=== PATIENT | female | born 1955 | race Caucasian/White ===

== ENCOUNTER → 2016-07-26 | Outpatient (CLI) | payer OTHER, BC ==
[2016-07-26 10:51] LABS: ALKALINE PHOSPHATASE 106 U/L (45-117); ALT/SGPT 35 U/L (12-78); AST/SGOT 19 U/L (15-37); CHOLESTEROL 153 mg/dl (0-200); CHOLESTEROL/HDL RATIO 2.6; HDL CHOLESTEROL 58 mg/dl; LDL CHOLESTEROL CALCULATED 70 mg/dl; TRIGLYCERIDES 126 mg/dl (0-150); VERY LOW DENSITY LIPOPROT CALC 25 mg/dl
== END ==
LOC: C.LABUPBEA 08:51
PROVIDERS: ATTEND Family Medicine
DX: E78.5 Hyperlipidemia, unspecified (principal)

== ENCOUNTER → 2016-09-27 | Outpatient (CLI) | payer OTHER, BC | END | disposition home or self-care (01) | LOC: C.LABUPBEA 09:11 | PROVIDERS: ATTEND Family Medicine | DX: B18.2 Chronic viral hepatitis C (principal) ==

== ENCOUNTER → 2016-11-19 | Outpatient (CLI) | payer OTHER, BC ==
[2016-11-19 08:37] LABS: HEMATOCRIT 40.9 % (37-47); MEAN CELL VOLUME 95.1 fL (80-100); MEAN CORPUSCULAR HEMOGLOBIN 29.8 pg (25-34); MEAN CORPUSCULAR HGB CONC 31.3 g/dl (32-36); PLATELET COUNT 307 K/uL (130-400); WHITE BLOOD COUNT 5.77 K/uL (4.8-10.8)
[2016-11-19 08:45] LABS: ALT/SGPT 32 U/L (12-78); BLOOD UREA NITROGEN 18 mg/dl (7-18); BUN/CREATININE RATIO 18.2 (10-20); CARBON DIOXIDE 26 mmol/L (21-32); CHLORIDE 106 mmol/L (98-107); GLUCOSE 180 mg/dl (70-99); POTASSIUM 4.1 mmol/L (3.5-5.1); SODIUM 142 mmol/L (136-145)
[2016-11-19 08:48] LABS: ESTIMATED AVERAGE GLUCOSE 180 mg/dl; HA1C FLAG Normal (Normal)
[2016-11-19 08:54] LABS: CALCIUM 8.9 mg/dl (8.5-10.1)
[2016-11-19 08:58] LABS: ALB/GLOB RATIO 0.9 (0.9-2); ALKALINE PHOSPHATASE 102 U/L (45-117); AST/SGOT 21 U/L (15-37)
--- NOTE | 2016-12-03 12:54 | CODING QUERY MEDICAL NECESSITY ---
SUPPORTING DIAGNOSIS NEEDED A supporting diagnosis is required for the test/procedure performed on this patient in order for us to be reimbursed by the patient's insurance. Please provide a supporting diagnosis for the following test/procedure listed below next to the test name along with your signature. *If there is no additional diagnosis for this patient that would support the following test/procedure please document that below next to the test/procedure. Test(s)/Procedure(s) that require a supporting diagnosis: * VITAMIN D, 25-HYDROXY DIAGNOSIS: Provider Signature: Date: Thank you Sophie Lynch Dasdak Information Management Once completed, please kindly fax back to [phone] For questions please call [phone]
== END | disposition home or self-care (01) ==
LOC: C.LABUPBEA 08:19
PROVIDERS: ATTEND Family Medicine
DX: E78.5 Hyperlipidemia, unspecified (principal); E11.9 Type 2 diabetes mellitus without complications; E03.9 Hypothyroidism, unspecified; E55.9 Vitamin D deficiency, unspecified

== ENCOUNTER → 2017-01-02 | Outpatient (CLI) | payer OTHER, BC ==
[2017-01-02 14:18] LABS: URINE APPEARANCE CLOUDY (CLEAR); URINE BILIRUBIN NEG (NEG); URINE COLOR YELLOW; URINE EPITHELIAL CELL AUTO >30 /lpf (0-5); URINE NITRITE NEG (NEG); URINE SPECIFIC GRAVITY 1.028 (1.000-1.030); UROBILINOGEN NEG (NEG); ZZUR CULT IF INDIC CLEAN CATCH YES
[2017-01-02 14:25] LABS: MANUAL MICROSCOPIC REQUIRED? NO; REVIEW REQ? NO
== END | disposition home or self-care (01) ==
LOC: C.LABUPBEA 13:39
PROVIDERS: ATTEND Family Medicine
DX: Z01.89 Encounter for other specified special examinations (principal)

== ENCOUNTER → 2017-02-15 | Outpatient (CLI) | payer OTHER, BC ==
[2017-02-15 11:03] LABS: ESTIMATED AVERAGE GLUCOSE 186 mg/dl; HA1C FLAG Normal (Normal)
== END ==
LOC: C.LABUPBEA 09:37
PROVIDERS: ATTEND Family Medicine
DX: E11.9 Type 2 diabetes mellitus without complications (principal)

== ENCOUNTER → 2017-03-20 | Outpatient (CLI) | payer OTHER, BC | LOC: C.LABUPBEA 07:44 | PROVIDERS: ATTEND Nurse Practitioner Family | DX: E55.9 Vitamin D deficiency, unspecified (principal) ==

== ENCOUNTER → 2017-03-21 | Outpatient (CLI) | payer OTHER, BC | LOC: C.LABUPBEA 08:55 | PROVIDERS: ATTEND Nurse Practitioner Family | DX: E55.9 Vitamin D deficiency, unspecified (principal) ==

== ENCOUNTER → 2017-04-05 | Outpatient (CLI) | payer OTHER, BC | LOC: C.LABUPBEA 08:31 | PROVIDERS: ATTEND Nurse Practitioner Family | DX: E03.9 Hypothyroidism, unspecified (principal) ==

== ENCOUNTER → 2017-06-25 | Outpatient (CLI) | payer OTHER, BC ==
[2017-06-25 09:08] LABS: HEMOGLOBIN A1C 7.9 % (4.5-5.6)
== END ==
LOC: C.LABUPBEA 08:35
PROVIDERS: ATTEND Nurse Practitioner Family
DX: E11.9 Type 2 diabetes mellitus without complications (principal)

== ENCOUNTER → 2017-06-28 | Outpatient (CLI) | payer OTHER, BC | LOC: C.LABUPBEA 08:09 | PROVIDERS: ATTEND Nurse Practitioner Family | DX: E03.9 Hypothyroidism, unspecified (principal); E78.5 Hyperlipidemia, unspecified ==

== ENCOUNTER → 2017-07-05 | Outpatient (CLI) | payer OTHER, BC | LOC: C.LABUPBEA 07:57 | PROVIDERS: ATTEND Nurse Practitioner Family | DX: E03.9 Hypothyroidism, unspecified (principal) ==

== ENCOUNTER → 2017-07-22 | Outpatient (CLI) | payer OTHER, BC ==
[2017-07-22 16:45] LABS: INFLUENZA A PCR Neg for Influ A (NEG); INFLUENZA B PCR Neg for Influ B (NEG)
== END | disposition home or self-care (01) ==
LOC: C.LABUPBEA 15:11
PROVIDERS: ATTEND Nurse Practitioner Family
DX: R50.9 Fever, unspecified (principal)

== ENCOUNTER → 2017-09-19 | Outpatient (CLI) | payer OTHER, BC ==
[2017-09-19 09:53] LABS: ALT/SGPT 32 U/L (12-78); AST/SGOT 22 U/L (15-37); BLOOD UREA NITROGEN 15 mg/dl (7-18); CALCIUM 8.7 mg/dl (8.5-10.1); CARBON DIOXIDE 24 mmol/L (21-32); CREATININE 0.91 mg/dl (0.60-1.20); GLUCOSE 99 mg/dl (70-99); POTASSIUM 4.1 mmol/L (3.5-5.1); SODIUM 140 mmol/L (136-145)
[2017-09-19 09:56] LABS: ALKALINE PHOSPHATASE 88 U/L (45-117); TOTAL PROTEIN 6.5 gm/dl (6.4-8.2)
== END ==
LOC: C.LABUPBEA 07:52
PROVIDERS: ATTEND Nurse Practitioner Family
DX: E78.5 Hyperlipidemia, unspecified (principal)

== ENCOUNTER → 2017-09-20 | Outpatient (CLI) | payer OTHER, BC ==
[2017-09-20 09:24] LABS: HEMOGLOBIN A1C 7.5 % (4.5-5.6)
== END ==
LOC: C.LABUPBEA 07:46
PROVIDERS: ATTEND Nurse Practitioner Family
DX: E11.9 Type 2 diabetes mellitus without complications (principal)

== ENCOUNTER → 2017-10-29 | Outpatient (CLI) | payer OTHER, BC | LOC: C.LABUPBEA 09:18 | PROVIDERS: ATTEND Nurse Practitioner Family | DX: E03.9 Hypothyroidism, unspecified (principal); E78.5 Hyperlipidemia, unspecified; E55.9 Vitamin D deficiency, unspecified ==

== ENCOUNTER 2025-01-02 14:12 | Inpatient (IN) ==
--- NOTE | 2025-01-02 14:34 | Emergency Department Note ---
Impression & Plan Fever of unknown origin, Hypomagnesemia, Acute hyponatremia ED Provider Note NAME: JENA AGUIRRE AGE: 69 SEX: F : 1955 ARRIVES VIA: Ambulance INFORMANT: Patient, EMS ED PROVIDER(S): Jax Araujo DO CHIEF COMPLAINT: Altered mental status HPI: The patient is a 69-year-old female who presented to the emergency department for confusion. The patient was recently treated for a urinary tract infection with Bactrim. She is 2 days status post finishing that antibiotic. She presents to the emergency department for evaluation of fever. The patient also has been confused recently. Normally she is able to feed herself and help with her care but this has become more difficult over the last 48 hours. There is no reported trauma. The patient himself offers no complaints. ROS: See above HPI for pertinent positives & negatives. A total of 10 systems reviewed and were otherwise negative. PAST MEDICAL HISTORY: See Below PAST SURGICAL HISTORY: See Below FAMILY HISTORY: See Below SOCIAL HISTORY: See Below HOME MEDICATIONS: See Below ALLERGIES: See Below VITALS: See Below PHYSICAL EXAMINATION: GENERAL: The patient is awake and follows commands. She is slow to answer questions. EYES: The conjunctivae are clear. The pupils are round and reactive. EARS, NOSE, MOUTH AND THROAT: The nose is without any evidence of any deformity. Mucous membranes are dry. NECK: The neck is nontender and supple. RESPIRATORY: Normal respiratory effort is noted there is no evidence of wheezing rhonchi or rales CARDIOVASCULAR: Tachycardic and regular heart sounds were noted to auscultation. There is no evidence of murmur. GASTROINTESTINAL: The abdomen is soft and mildly distended. There is no specific guarding or rigidity. MUSCULOSKELETAL/EXTREMITIES: There is no evidence of gross deformity full range of motion is noted in the hips and shoulders. SKIN: Skin is warm and dry. Pedal edema was noted bilaterally. NEUROLOGIC: Patient is awake and oriented to person only. Strength was symmetric. Speech was soft but clear. MEDICAL DECISION MAKING: The patient is a 69-year-old female who presented to the emergency department for an evaluation of confusion and fever. The patient was found to have a fever in the emergency department. She was treated with IV fluids in the emergency department. On physical exam she appeared to be dehydrated. I discussed the patient's laboratory and radiographic studies with her. At this time no family is come the emergency department to be with her. Given her findings I discussed her condition with the on-call [facility] hospitalist. They have agreed to evaluate the patient in the emergency department for further management and disposition. The patient was not found to have a definite source of infection on her workup. Triage Nursing notes reviewed. Prior medical records reviewed Vital Signs: reviewed and remarkable for fever and tachycardia. Differential diagnosis: Infection, hypoglycemia, electrolyte abnormalities, overdose, toxicologic, cardiac sources, intracerebral event, neurologic, trauma, as well as other pathologies. ER treatment provided: See below Diagnostics interpreted by me: ECG: EKG was obtained in the emergency department. My interpretation is sinus tachycardia at [address] abnormalities were noted. Poor R wave progression was noted. QTc was 428 ms. Cardiac Monitoring: An order was placed for continuous cardiac monitoring. The monitor shows a rate of 91 bpm with sinus rhythm. Laboratory studies: As stated above and show below. Imaging studies: See below. Radiographic imaging was reviewed by myself Consultation(s): I discussed this case with Dr. Mcduffie who is on-call for the [facility]. Past Med/Surg History Problem List (Updated 01/02/25 @ 16:07 by Jax Araujo DO) Acute hyponatremia (Acute) Hypomagnesemia (Acute) Fever of unknown origin (Acute) Colon cancer screening Encounter for pre-operative examination Medical History History of COVID-19 06/17/20 - [address] 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 Beliefs That Will Affect Care: None Current Living Situation: [facility] Current Living Situation Comment: [facility] Feels Safe at Home: Yes Allergies Allergies Allergy/AdvReac Type Severity Reaction Status Date / Time No Known Allergies Allergy Verified 09/01/20 09:29 Home Meds Home Medications Medication Instructions Recorded Confirmed atorvastatin 20 mg tablet (Lipitor) 20 mg PO HS 07/28/20 01/02/25 donepezil 5 mg tablet (Aricept) 5 mg PO HS 07/28/20 01/02/25 fesoterodine 4 mg tablet,extended 4 mg PO DAILY 07/28/20 01/02/25 release 24 hr (Toviaz) levothyroxine 50 mcg tablet 50 mcg PO QAM 07/28/20 01/02/25 (Synthroid) polyethylene glycol 3350 17 gram 17 g PO DAILY 07/28/20 01/02/25 oral powder packet (Miralax) sitagliptin phosphate 50 1 tab PO BID 07/28/20 01/02/25 mg-metformin 1,000 mg tablet (Janumet) acetaminophen 325 mg tablet 650 mg PO Q6 PRN PAIN LEVEL 1-10 01/02/25 01/02/25 acetaminophen 325 mg tablet 650 mg PO Q6 PRN TEMP > 101 01/02/25 01/02/25 carboxymethylcellulose sodium 0.5 1 drp OPB BID 01/02/25 01/02/25 % eye drops (Refresh Tears) chlorhexidine gluconate 0.12 % 15 ml buccal BID 01/02/25 01/02/25 mouthwash (Peridex) cholecalciferol (vitamin D3) 25 25 mcg PO DAILY 01/02/25 01/02/25 mcg (1,000 unit) tablet (Vitamin D3) divalproex 125 mg capsule,delayed 125 mg PO TID 01/02/25 01/02/25 release sprinkle lidocaine 5 % topical patch 1 patch topical DAILY 01/02/25 01/02/25 memantine 10 mg tablet 10 mg PO BID 01/02/25 01/02/25 quetiapine 100 mg tablet 150 mg PO HS 01/02/25 01/02/25 sertraline 100 mg tablet 100 mg PO QAM 01/02/25 01/02/25 Results & Data (ED) Vital Signs Vital Signs - 24 hr 01/02/25 14:00 01/02/25 14:23 01/02/25 14:36 Temperature 38.3 C H Temperature Source Rectal Pulse Rate 111 H 109 H Respiratory Rate 18 Respiratory Effort / Characteristics Non-Labored Spontaneous Respiratory Depth Normal Respiratory Pattern Regular Blood Pressure 114/74 Blood Pressure Mean 87 Pulse Oximetry 93 93 Oxygen Delivery Method Room Air Room Air Oxygen Flow Rate Sepsis Recent Fever Within 48 Hours Yes Sepsis New/Unexplained Change in Mental Status Yes Sepsis Action Taken by Nursing Physician Notified 01/02/25 14:45 01/02/25 15:11 01/02/25 15:15 Temperature Temperature Source Pulse Rate 103 H 99 H Respiratory Rate 19 19 Respiratory Effort / Characteristics Respiratory Depth Respiratory Pattern Blood Pressure 116/58 L Blood Pressure Mean 77 Pulse Oximetry 91 96 95 Oxygen Delivery Method Room Air Oxygen Flow Rate 0 Sepsis Recent Fever Within 48 Hours Sepsis New/Unexplained Change in Mental Status Sepsis Action Taken by Nursing 01/02/25 16:03 Temperature Temperature Source Pulse Rate 91 H Respiratory Rate 19 Respiratory Effort / Characteristics Respiratory Depth Respiratory Pattern Blood Pressure 136/86 Blood Pressure Mean 102 Pulse Oximetry 96 Oxygen Delivery Method Oxygen Flow Rate Sepsis Recent Fever Within 48 Hours Sepsis New/Unexplained Change in Mental Status Sepsis Action Taken by [facility] Medications Current Medication List: was personally reviewed by me Laboratory Data Attestation: I reviewed the patient's lab results. 01/02/25 14:20 01/02/25 14:20 Lab Results 01/02/25 01/02/25 01/02/25 Range/Units 14:20 14:21 14:26 WBC 5.78 (4.8-10.8) K/ul RBC 3.42 L (4.20-5.40) M/uL Hgb 10.6 L (12.0-16.0) g/dl Hct 31.7 L (37.0-47.0) % MCV 92.7 (80.0-100.0) fL MCH 31.0 (25.0-34.0) pg MCHC 33.4 (32.0-36.0) g/dL RDW Std Deviation 46.0 (36.4-46.3) fL RDW Coeff of Sukh 13.6 (11.5-14.5) % Plt Count 146 (130-400) K/uL MPV 10.1 (9.4-12.4) fL Immature Gran % (Auto) 2.2 % Neut % (Auto) 88.6 % Lymph % (Auto) 6.4 % [place] % (Auto) 1.6 % Eos % (Auto) 0.9 % Baso % (Auto) 0.3 % Neut # (Auto) 5.12 (1.40-6.50) K/uL Lymph # (Auto) 0.37 L (1.20-3.40) K/uL [place] # (Auto) 0.09 L (0.11-0.59) K/uL Eos # (Auto) 0.05 (0.00-0.50) K/uL Baso # (Auto) 0.02 (0.00-0.20) K/uL Immature Gran # (Auto) 0.13 (0.01-0.20) K/uL PT 12.2 H (9.0-12.0) Seconds INR 1.1 (0.9-1.1) APTT 35 H (21-31) Seconds PTT Ratio 1.3 VBG pH (7.36-7.41) VBG pCO2 (38-50) mmHg VBG pO2 mmHg VBG HCO3 mmol/L VBG O2 Saturation % VBG Base Excess mEq/L Sodium 130 L (136-145) mmol/L Potassium 4.6 (3.5-5.1) mmol/L Chloride 98 (98-107) mmol/L Carbon Dioxide 24 (21-32) mmol/L Anion Gap 8 (3-11) BUN 21 (6-23) mg/dl Creatinine 0.88 (0.6-1.2) mg/dl Est Cr Clr Drug Dosing Not Reportable eGFR 71.54 BUN/Creatinine Ratio 23.9 H (10-20) Glucose 232 H (70-99(Fasting)) mg/dl POC Glucose 255 H (70-99) mg/dl Lactate 1.4 (0.4-2.0) mmol/L Calcium 8.2 L (8.6-10.3) mg/dl Magnesium 1.4 L (1.7-2.4) mg/dl Total Bilirubin 0.3 (0.2-1.0) mg/dl Direct Bilirubin 0.1 (0-0.2) mg/dl AST 51 H (13-39) U/L ALT 28 (7-52) U/L Alkaline Phosphatase 57 (34-104) U/L Troponin I High Sens 12.4 (0-14) pg/ml Total Protein 6.1 (6.0-8.3) gm/dl Albumin 2.9 L (3.4-5.0) gm/dl Procalcitonin 0.67 H (0-0.5) ng/ml Urine Color Urine Appearance (Clear) Urine pH (4.5-7.5) Ur Specific [place] (1.000-1.030) Urine Protein (Negative) Urine Glucose (UA) (Negative) Urine Ketones (Negative) Urine Blood (Negative) Urine Nitrite (Negative) Urine Bilirubin (Negative) Urine Urobilinogen (Negative) Ur Leukocyte Esterase (Negative) Urine WBC (Auto) (0-5) /hpf Urine RBC (Auto) (0-2) /hpf U Hyaline Cast (Auto) (0-2) /lpf U Epithel Cells (Auto) (0-2) /hpf Urine Bacteria (Auto) (None Seen) Urine Comment SARS-CoV-2 (PCR) NEGATIVE (Negative) Influenza Type A (PCR) Negative (Neg) Influenza Type B (PCR) Negative (Neg) RSV (RT-PCR) Negative (Neg) 01/02/25 01/02/25 Range/Units 14:43 15:13 WBC (4.8-10.8) K/ul RBC (4.20-5.40) M/uL Hgb (12.0-16.0) g/dl Hct (37.0-47.0) % MCV (80.0-100.0) fL MCH (25.0-34.0) pg MCHC (32.0-36.0) g/dL RDW Std Deviation (36.4-46.3) fL RDW Coeff of Sukh (11.5-14.5) % Plt Count (130-400) K/uL MPV (9.4-12.4) fL Immature Gran % (Auto) % Neut % (Auto) % Lymph % (Auto) % [place] % (Auto) % Eos % (Auto) % Baso % (Auto) % Neut # (Auto) (1.40-6.50) K/uL Lymph # (Auto) (1.20-3.40) K/uL [place] # (Auto) (0.11-0.59) K/uL Eos # (Auto) (0.00-0.50) K/uL Baso # (Auto) (0.00-0.20) K/uL Immature Gran # (Auto) (0.01-0.20) K/uL PT (9.0-12.0) Seconds INR (0.9-1.1) APTT (21-31) Seconds PTT Ratio VBG pH 7.49 H (7.36-7.41) VBG pCO2 32 L (38-50) mmHg VBG pO2 69 mmHg VBG HCO3 24 mmol/L VBG O2 Saturation 95.9 % VBG Base Excess 1.7 mEq/L Sodium (136-145) mmol/L Potassium (3.5-5.1) mmol/L Chloride (98-107) mmol/L Carbon Dioxide (21-32) mmol/L Anion Gap (3-11) BUN (6-23) mg/dl Creatinine (0.6-1.2) mg/dl Est Cr Clr Drug Dosing eGFR BUN/Creatinine Ratio (10-20) Glucose (70-99(Fasting)) mg/dl POC Glucose (70-99) mg/dl Lactate (0.4-2.0) mmol/L Calcium (8.6-10.3) mg/dl Magnesium (1.7-2.4) mg/dl Total Bilirubin (0.2-1.0) mg/dl Direct Bilirubin (0-0.2) mg/dl AST (13-39) U/L ALT (7-52) U/L Alkaline Phosphatase (34-104) U/L Troponin I High Sens (0-14) pg/ml Total Protein (6.0-8.3) gm/dl Albumin (3.4-5.0) gm/dl Procalcitonin (0-0.5) ng/ml Urine Color Yellow Urine Appearance Clear (Clear) Urine pH 6.0 (4.5-7.5) Ur Specific [place] 1.021 (1.000-1.030) Urine Protein 2+ H (Negative) Urine Glucose (UA) 1+ H (Negative) Urine Ketones Trace H (Negative) Urine Blood Negative (Negative) Urine Nitrite Negative (Negative) Urine Bilirubin Negative (Negative) Urine Urobilinogen Negative (Negative) Ur Leukocyte Esterase Negative (Negative) Urine WBC (Auto) 0-5 (0-5) /hpf Urine RBC (Auto) 0-2 (0-2) /hpf U Hyaline Cast (Auto) 0-2 (0-2) /lpf U Epithel Cells (Auto) 3-5 H (0-2) /hpf Urine Bacteria (Auto) None Seen (None Seen) Urine Comment SARS-CoV-2 (PCR) (Negative) Influenza Type A (PCR) (Neg) Influenza Type B (PCR) (Neg) RSV (RT-PCR) (Neg) Administered Medications Piperacillin Sod/Tazobactam Sod (Zosyn) 4.5 gm in 100 mls @ 200 mls/hr IV NOW ONE; Protocol Stop: 01/02/25 16:19 Last Admin: 01/02/25 16:05 Dose: 200 mls/hr Documented By: AMBIKA Magnesium Sulfate/Dextrose (Magnesium Sulfate / D5w) 1 gm in 100 mls @ 100 mls/hr IV NOW STA Stop: 01/02/25 16:49 Last Admin: 01/02/25 16:02 Dose: 100 mls/hr Documented By: AMBIKA Discontinued Medications Sodium Chloride (Nss) 1,000 mls @ 999 mls/hr IV .Q1H1M ONE Stop: 01/02/25 15:23 Last Infusion: 01/02/25 16:09 Dose: Infused Documented By: Admin: 01/02/25 14:35 Dose: 999 mls/hr Documented By: MASON Sodium Chloride (Nss) 1,000 mls @ 999 mls/hr IV .Q1H1M ONE Stop: 01/02/25 15:26 Last Admin: 01/02/25 16:03 Dose: 999 mls/hr Documented By: ANT Acetaminophen (Ofirmev) 1,000 mg in 100 mls @ 400 mls/hr IV NOW STA Stop: 01/02/25 16:04 Last Infusion: 01/02/25 16:09 Dose: Infused Documented By: Admin: 01/02/25 16:02 Dose: 400 mls/hr Documented By: AMBIKA Imaging Data Attestation: I personally reviewed and interpreted this imaging study as follows: My Impression: 1 view chest x-ray was obtained in the emergency department. My interpretation is no free air or definite infiltrate, final report below. Radiologist's Impression: Chest X-Ray 01/02/25 14:23 Chest radiograph, one view History: Sepsis Comparison: None Findings: Single AP view of the chest performed. No focal consolidation or pleural effusion. No pneumothorax. The cardiomediastinal silhouette is within normal limits. Normal pulmonary vascularity. No evidence for lymphadenopathy. No visualized bony or soft tissue abnormality. Impression: Normal chest radiograph Electronically signed by Jeremy Castro 01-02-2025 3:[address] 01/02/25 14:23 CT head without contrast History: AMS Comparison: None Technique: Using multidetector thin collimation helical acquisition technique, axial, coronal and sagittal CT images from the skull base to the vertex were obtained without intravenous contrast. Dose reduction techniques were achieved by using automatic exposure control and/or adjustment of mA and/or kV according to patient size and/or use of iterative reconstruction technique. Findings: No intracranial hemorrhage, mass-effect, or midline shift. The ventricles are proportionate to the cerebral sulci. The niño to white matter differentiation of the cerebral hemispheres is preserved. The basal cisterns are patent. There is moderate cerebral atrophy. Moderate, patchy low-attenuation changes in the white matter, most suggestive of sequelae of chronic small vessel ischemic disease. The visualized paranasal sinuses are clear. Mastoid air cells are clear. Impression: No acute intracranial pathology. Electronically signed by Jeremy Castro 01-02-2025 3:59 PM Abdomen/Pelvis CT 01/02/25 14:34 EXAMINATION: CT of the abdomen and pelvis performed without contrast TECHNIQUE: Helical CT images from the lung bases through the symphysis pubis were obtained without contrast. Coronal and sagittal reformatted images were generated at a workstation for further assessment. Dose reduction techniques were achieved by using automatic exposure control and/or adjustment of mA and/or kV according to patient size and/or use of iterative reconstruction technique. COMPARISON: None HISTORY: Abdominal pain FINDINGS: Lower chest: No consolidation. No pleural effusion or pneumothorax. Liver: No suspicious liver lesions. Gallbladder: No gallstones. No evidence of acute cholecystitis. Spleen: Normal size. Pancreas: No suspicious pancreatic lesions. The pancreatic duct is not dilated. Adrenal glands: No adrenal nodules. Kidneys: No hydronephrosis or obstructing renal stones. Bladder / Pelvic organs: Unremarkable. Bowel: No bowel obstruction. No abnormal bowel wall thickening. The appendix is unremarkable. There is a large colonic stool burden mixed with fat density throughout the large bowel, and especially in the rectum. Lymph nodes: No retroperitoneal, mesenteric, or pelvic lymphadenopathy. Peritoneum / Retroperitoneum: No free fluid or air within the abdomen. Vessels: No infrarenal aortic aneurysm. Bones and soft tissues: No suspicious lesion in the bones. IMPRESSION: There is a large colonic stool burden mixed with fat density suggesting steatorrhea. No other acute process Electronically signed by Jeremy Castro 01-02-2025 4:01 PM Discharge Plan Visit Data Chief Complaint: Confusion Stated Complaint: AMS, LETHARGIC ,WEAKNESS ED Provider: Jax Araujo Discharge Problem: Fever of unknown origin, Hypomagnesemia, Acute hyponatremia Patient Disposition: Being Evaluated by Hospitalist Condition: Fair Forms Stand Alone Forms: My [facility] Prescriptions Prescriptions: No Action atorvastatin [Lipitor] 20 mg Tablet 20 mg PO HS donepezil [Aricept] 5 mg Tablet 5 mg PO HS polyethylene glycol 3350 [Miralax] 17 gram Powder In Packet 17 g PO DAILY Rx Instructions: HOLD FOR LOOSE STOOLS levothyroxine [Synthroid] 50 mcg Tablet 50 mcg PO QAM Rx Instructions: GIVE AT LEAST 1/2 HOUR BEFORE EATING Janumet 50-1,000 mg Tablet 1 tab PO BID fesoterodine [Toviaz] 4 mg Tablet Extended Release 24 Hr 4 mg PO DAILY acetaminophen 325 mg Tablet 650 mg PO Q6 MDD 3 G PRN (Reason: TEMP > 101) quetiapine 100 mg tablet 150 mg PO HS Rx Instructions: 1.5 TABLET DOSE sertraline 100 mg tablet 100 mg PO QAM cholecalciferol (vitamin D3) [Vitamin D3] 25 mcg (1,000 unit) Tablet 25 mcg PO DAILY memantine 10 mg tablet 10 mg PO BID acetaminophen 325 mg Tablet 650 mg PO Q6 MDD 3G PRN (Reason: PAIN LEVEL 1-10) divalproex 125 mg capsule, delayed rel sprinkle 125 mg PO TID carboxymethylcellulose sodium [Refresh Tears] 0.5 % Drops 1 drp OPB BID lidocaine 5 % adhesive patch,medicated 1 patch topical DAILY Rx Instructions: APPLY TO LOWER BACK AND REMOVE PER SCHEDULE chlorhexidine gluconate [Peridex] 0.12 % Mouthwash 15 ml BUCCAL BID Referrals Referrals: [facility] [Primary Care Provider] -
[2025-01-02] MEDS: SODIUM CHLORIDE 0.9% 1,000 ML IV ONE ×2 (14:35→16:03)
[2025-01-02 14:47] LABS: Hematocrit (blood only) 31.7 % (37.0-47.0); Hemoglobin 10.6 g/dl (12.0-16.0); Mean Corpuscular Hemoglobin 31.0 pg (25.0-34.0); Mean Corpuscular Volume 92.7 fL (80.0-100.0); Platelet Count 146 K/uL (130-400); RDW Standard Deviation 46.0 fL (36.4-46.3); Red Blood Count 3.42 M/uL (4.20-5.40); White Blood Count 5.78 K/ul (4.8-10.8)
[2025-01-02 14:51] LABS: Base Excess VBG 1.7 mEq/L; HCO3 VBG 24 mmol/L; Oxygen Saturation VBG 95.9 %; PCO2 VBG 32 mmHg (38-50); PO2 VBG 69 mmHg; pH VBG 7.49 (7.36-7.41)
[2025-01-02 14:55] LABS: INR 1.1 (0.9-1.1); Partial Thromboplastin Time 35 Seconds (21-31); Prothrombin Time 12.2 Seconds (9.0-12.0)
[2025-01-02 15:05] LABS: Alanine Aminotransferase 28 U/L (7-52); Alkaline Phosphatase 57 U/L (34-104); Anion Gap 8 (3-11); Bilirubin,Total 0.3 mg/dl (0.2-1.0); Blood Urea Nitrogen 21 mg/dl (6-23); Calcium 8.2 mg/dl (8.6-10.3); Carbon Dioxide 24 mmol/L (21-32); Chloride 98 mmol/L (98-107); Glucose 232 mg/dl (70-99(Fasting)); Magnesium 1.4 mg/dl (1.7-2.4); Potassium 4.6 mmol/L (3.5-5.1); Sodium 130 mmol/L (136-145); Total Protein 6.1 gm/dl (6.0-8.3)
[2025-01-02 15:21] LABS: Influenza A virus by PCR Negative (Neg); Influenza B virus by PCR Negative (Neg); SARS CoV2 RNA(COVID-19) Ceph NEGATIVE (Negative)
[2025-01-02 15:45] LABS: Immature Granulocytes # (auto) 0.13 K/uL (0.01-0.20); Immature Granulocytes % (auto) 2.2 %
[2025-01-02 15:46] LABS: Appearance Urine Clear (Clear); Bacteria Urine Automated None Seen (None Seen); Cast Urine Automated 0-2 /lpf (0-2); Glucose Urine UA 1+ (Negative); RBC Urine Automated 0-2 /hpf (0-2); WBC Urine Automated 0-5 /hpf (0-5)
--- NOTE | 2025-01-02 15:51 | XRay Report ---
Chest radiograph, one view History: Sepsis Comparison: None Findings: Single AP view of the chest performed. No focal consolidation or pleural effusion. No pneumothorax. The cardiomediastinal silhouette is within normal limits. Normal pulmonary vascularity. No evidence for lymphadenopathy. No visualized bony or soft tissue abnormality. Impression: Normal chest radiograph Electronically signed by Jeremy Castro 01-02-2025 3:51 PM
--- NOTE | 2025-01-02 15:59 | CT Scan Report ---
CT head without contrast History: AMS Comparison: None Technique: Using multidetector thin collimation helical acquisition technique, axial, coronal and sagittal CT images from the skull base to the vertex were obtained without intravenous contrast. Dose reduction techniques were achieved by using automatic exposure control and/or adjustment of mA and/or kV according to patient size and/or use of iterative reconstruction technique. Findings: No intracranial hemorrhage, mass-effect, or midline shift. The ventricles are proportionate to the cerebral sulci. The niño to white matter differentiation of the cerebral hemispheres is preserved. The basal cisterns are patent. There is moderate cerebral atrophy. Moderate, patchy low-attenuation changes in the white matter, most suggestive of sequelae of chronic small vessel ischemic disease. The visualized paranasal sinuses are clear. Mastoid air cells are clear. Impression: No acute intracranial pathology. Electronically signed by Jeremy Castro 01-02-2025 3:59 PM
[2025-01-02] MEDS: MAGNESIUM SULFATE / D5W 1 GM/100 ML BAG IV STA (16:02)
[2025-01-02] MEDS: ACETAMINOPHEN 1,000 MG/100 ML VIAL IV STA (16:02)
--- NOTE | 2025-01-02 16:02 | CT Scan Report ---
EXAMINATION: CT of the abdomen and pelvis performed without contrast TECHNIQUE: Helical CT images from the lung bases through the symphysis pubis were obtained without contrast. Coronal and sagittal reformatted images were generated at a workstation for further assessment. Dose reduction techniques were achieved by using automatic exposure control and/or adjustment of mA and/or kV according to patient size and/or use of iterative reconstruction technique. COMPARISON: None HISTORY: Abdominal pain FINDINGS: Lower chest: No consolidation. No pleural effusion or pneumothorax. Liver: No suspicious liver lesions. Gallbladder: No gallstones. No evidence of acute cholecystitis. Spleen: Normal size. Pancreas: No suspicious pancreatic lesions. The pancreatic duct is not dilated. Adrenal glands: No adrenal nodules. Kidneys: No hydronephrosis or obstructing renal stones. Bladder / Pelvic organs: Unremarkable. Bowel: No bowel obstruction. No abnormal bowel wall thickening. The appendix is unremarkable. There is a large colonic stool burden mixed with fat density throughout the large bowel, and especially in the rectum. Lymph nodes: No retroperitoneal, mesenteric, or pelvic lymphadenopathy. Peritoneum / Retroperitoneum: No free fluid or air within the abdomen. Vessels: No infrarenal aortic aneurysm. Bones and soft tissues: No suspicious lesion in the bones. IMPRESSION: There is a large colonic stool burden mixed with fat density suggesting steatorrhea. No other acute process Electronically signed by Jeremy Castro 01-02-2025 4:01 PM
[2025-01-02] MEDS: PIPERACILLIN/TAZOBACTAM 4.5 GM/100 ML BAG IV ONE (16:05)
--- NOTE | 2025-01-02 16:16 | History & Physical Report ---
Date of Service January 02, 2025 Assessment & Plan (1) Acute hyponatremia: Plan Ms. Li is a 69 yo woman with history of schizoaffective d/o, DMTII, dementia, HLD, dry eyes, overactive bladder, CKDII, constipation is admitted for acute encephalopathy and questionable sepsis iso fever and tachycardia. There is no clear source of infection, but given patient's inability to participate in exam will continue abx until infectious work up results. High suspicion for dehydration and severe constipation contributing to acute presentation, however, suspect ongoing progressive process given report that patient has had ongoing decline. Plan for aggressive bowel regimen at this time. Encourage po at this time as labs indicate mixed picture for hyponatremia, would suspect poor po intake over course of last few days, but also labs suggest mild siadh likely. #possible sepsis with fever/tachycardia, however, unclear source of infection #severe constipation #Acute metabolic encephalopathy TMAX 38.3, recent ammonia level 73 12/24 with reduction of depakote level on 12/26 (recent level 35L) s/p 2L NS given elevated bun/cr ratio, acute hyponatremia, tachycardia, fever and severe constipation could be dehydrated completed recent bactrim course, UA noncontributory no clear source of infection or localizing symptoms, RSV/flu/covid negative, no WBC -follow infectious work up: blood cx pending -continue empiric zosyn, discontinue if negative -Delirium precautions -start laculose PO x 6 for constipation and enema -continue mirlax daily and add senokot -order b12, folate, ammonia level #acute hyponatremia NA 130, normal serum osmo at 280 (iso hyperglycemia, corrected to 132), urine osmos and urine sodium suggest possible slight SIADH, perhaps iso of illness/severe constipation will hold on additional fluids and recheck BMP at 1830 goal 138-140 if downtrending given fluid bolus, would place FR 1.5L and trend bmp q4, consider nephrology #Mild elevation AST AST 51, ALT 28 hold statin possibly iso illness/dehydration Trend cmp, if uptrending get US however, no cholecystitis or liver process noted on imaging #OAB hold fesoterodine iso confusion #DMTII hold home janumet update A1C sliding scale while admitted #CKDII CTM #HLD continue statin #Schizoaffective d/o continue valproic acid continue quetiapine continue sertraline #Dementia continue namenda and aricept DVT ppx Lovenox Admit med/tele attempted to call brother Michael Li with no success, Admission and Anticipated Discharge Date Admission Date: Time spent evaluating patient, direct bedside care, chart review, placing orders, interpretation of diagnostic studies, discussion with consultants, patient, and family members, as well as other required patient management activities is 75 minutes. History of Present Illness Chief Complaint: confusion Primary Care Provider: [facility] Ms. Li is a 69 yo woman with history of schizoaffective d/o, DMTII, dementia, HLD, dry eyes, overactive bladder, CKDII, constipation presented to [facility] ED due to confusion. Patient can state name, but is poor historian--ultimately stating "yes" to every question and closing eyes when question requires more thoughtful response. Patient does not recall last bowel movement. Patient reports everything hurts on her. She follows simple commands and is awake and alert. Patient does endorse her abdomen feels full. She denies chest pain. She denies any nausea or vomiting. Patient unable to answer further questions. Call to [facility] was made for more history. Per nursing (Dari), she has been on the case load for 2 years; however, it is reported that she has "gone down hill" over the last two months, noting progressive weakness from being entirely independent, requiring assistance with eating, and near full support. She was noted to just "look worse" prompting her to be sent to the ED. Available nurse was unable to explain what was "worse" from baseline. In the ED, vitals were notable for BP of 130-140s HR of 80-110s, and O2 sat of low 90s on room air Imaging revealed large colonic stool burden, CT head with chronic ischemic small vessel disease, chest xray without consolidation EKG reviewed with QTc 428 and tachycardia (no resolved) ED interventions: zosyn, tylenol, 2LNS labs with stable chronic anemia, hyponatremia to 130, AST 51, TSH 5.702, FT4 pending at this time, procal 0.67 Patient to be admitted to med tele for further evaluation and management of acute encephalopathy Allergies Allergy/AdvReac Type Severity Reaction Status Date / Time No Known Allergies Allergy Verified 09/01/20 09:29 Home Medications Medication Instructions Recorded Confirmed Type atorvastatin 20 mg tablet (Lipitor) 20 mg PO HS 07/28/20 01/02/25 History donepezil 5 mg tablet (Aricept) 5 mg PO HS 07/28/20 01/02/25 History fesoterodine 4 mg tablet,extended 4 mg PO DAILY 07/28/20 01/02/25 History release 24 hr (Toviaz) levothyroxine 50 mcg tablet 50 mcg PO QAM 07/28/20 01/02/25 History (Synthroid) polyethylene glycol 3350 17 gram 17 g PO DAILY 07/28/20 01/02/25 History oral powder packet (Miralax) sitagliptin phosphate 50 1 tab PO BID 07/28/20 01/02/25 History mg-metformin 1,000 mg tablet (Janumet) acetaminophen 325 mg tablet 650 mg PO Q6 PRN Fever Or Pain 01/02/25 01/02/25 History carboxymethylcellulose sodium 0.5 1 drp OPB BID 01/02/25 01/02/25 History % eye drops (Refresh Tears) chlorhexidine gluconate 0.12 % 15 ml buccal BID 01/02/25 01/02/25 History mouthwash (Peridex) cholecalciferol (vitamin D3) 25 25 mcg PO DAILY 01/02/25 01/02/25 History mcg (1,000 unit) tablet (Vitamin D3) divalproex 125 mg capsule,delayed 125 mg PO TID 01/02/25 01/02/25 History release sprinkle lidocaine 5 % topical patch 1 patch topical DAILY 01/02/25 01/02/25 History memantine 10 mg tablet 10 mg PO BID 01/02/25 01/02/25 History quetiapine 100 mg tablet 150 mg PO HS 01/02/25 01/02/25 History sertraline 100 mg tablet 100 mg PO QAM 01/02/25 01/02/25 History Past Med/Surg History Problem List (Updated 01/02/25 @ 16:07 by Jax Araujo DO) Acute hyponatremia (Acute) Hypomagnesemia (Acute) Fever of unknown origin (Acute) Colon cancer screening Encounter for pre-operative examination Medical History History of COVID-19 06/17/20 - per [facility] records Schizo affective schizophrenia Tinea unguium Vitamin D deficiency Hyperlipidemia Hypothyroid Intellectual disability Depression Type 2 diabetes mellitus Dementia Social History Smoking Status: Unknown if ever smoked Second Hand Exposure: No; Do You Dip or Chew Tobacco: No; Hx Alcohol Use: No Hx Substance Use: No Preferred Language: Australian Communication Ability: Impaired Java Solutions Architect Required: No Beliefs That Will Affect Care: None Current [facility] Sit[facility] Feels Safe at Home: Yes Review of Systems Review of Systems: Unobtainable due to cognitive status Physical Exam Physical Exam: GENERAL APPEARANCE: AxOx1 (self, was able to say hospital, but doesnt know where she lives or year, or state), closes eyes with more open ended questions, no acute distress. HEENT: NC, AT. MMM. EOMI, clear conjunctiva, oropharynx clear. NECK: Supple without lymphadenopathy. No stiffness or restricted ROM. HEART: Normal rate and regular rhythm, normal S1/S1, no m/r/g LUNGS: CTAB, moving air well. No crackles or wheezes are heard. ABDOMEN: mildly distended abdomen, BS+, mild grimacing when examining abdomen EXTREMITIES: Without cyanosis, clubbing or edema. NEUROLOGICAL: Grossly nonfocal. Alert and oriented, moving all 4 extremities. CN not formally tested but appear grossly intact. Skin: Warm and dry without any rash. Results & Data Results & Data Vital Signs (Past 12 Hours) Vital Signs Temp Pulse Resp BP Pulse Ox O2 Del Method O2 Flow Rate 01/02/25 16:03 91 H 19 136/86 96 01/02/25 15:15 99 H 19 95 01/02/25 15:11 96 Room Air 0 01/02/25 14:45 103 H 19 116/58 L 91 01/02/25 14:36 109 H 01/02/25 14:23 93 Room Air 01/02/25 14:00 38.3 C H 111 H 18 114/74 93 Room Air Laboratory Results Short CBC 01/02/25 Range/Units 14:20 WBC 5.78 (4.8-10.8) K/ul Hgb 10.6 L (12.0-16.0) g/dl Hct 31.7 L (37.0-47.0) % Plt Count 146 (130-400) K/uL BMP 01/02/25 14:20 Sodium 130 L Potassium 4.6 Chloride 98 Carbon Dioxide 24 BUN 21 Creatinine 0.88 Glucose 232 H Calcium 8.2 L Liver Function 01/02/25 Range/Units 14:20 Total Bilirubin 0.3 (0.2-1.0) mg/dl Direct Bilirubin 0.1 (0-0.2) mg/dl AST 51 H (13-39) U/L ALT 28 (7-52) U/L Alkaline Phosphatase 57 (34-104) U/L Albumin 2.9 L (3.4-5.0) gm/dl Urine 01/02/25 Range/Units 15:13 Urine Color Yellow Urine Appearance Clear (Clear) Urine pH 6.0 (4.5-7.5) Ur Specific [place] 1.021 (1.000-1.030) Urine Protein 2+ H (Negative) Urine Glucose (UA) 1+ H (Negative) Medications Administered Home Medications Medication Instructions Recorded Confirmed Last Taken atorvastatin 20 mg tablet (Lipitor) 20 mg PO HS 07/28/20 01/02/25 01/01/25 donepezil 5 mg tablet (Aricept) 5 mg PO HS 07/28/20 01/02/25 01/01/25 fesoterodine 4 mg tablet,extended 4 mg PO DAILY 07/28/20 01/02/25 01/02/25 release 24 hr (Toviaz) levothyroxine 50 mcg tablet 50 mcg PO QAM 07/28/20 01/02/25 01/02/25 (Synthroid) polyethylene glycol 3350 17 gram 17 g PO DAILY 07/28/20 01/02/25 01/02/25 oral powder packet (Miralax) sitagliptin phosphate 50 1 tab PO BID 07/28/20 01/02/25 01/02/25 mg-metformin 1,000 mg tablet (Janumet) acetaminophen 325 mg tablet 650 mg PO Q6 PRN Fever Or Pain 01/02/25 01/02/25 01/02/25 carboxymethylcellulose sodium 0.5 1 drp OPB BID 01/02/25 01/02/25 01/02/25 % eye drops (Refresh Tears) chlorhexidine gluconate 0.12 % 15 ml buccal BID 01/02/25 01/02/25 01/02/25 mouthwash (Peridex) cholecalciferol (vitamin D3) 25 25 mcg PO DAILY 01/02/25 01/02/25 01/02/25 mcg (1,000 unit) tablet (Vitamin D3) divalproex 125 mg capsule,delayed 125 mg PO TID 01/02/25 01/02/25 01/02/25 release sprinkle lidocaine 5 % topical patch 1 patch topical DAILY 01/02/25 01/02/25 01/02/25 memantine 10 mg tablet 10 mg PO BID 01/02/25 01/02/25 01/02/25 quetiapine 100 mg tablet 150 mg PO HS 01/02/25 01/02/25 01/01/25 sertraline 100 mg tablet 100 mg PO QAM 01/02/25 01/02/25 01/02/25
[2025-01-02] MEDS: LACTULOSE SYRUP 20 GM/30 ML UDC PO ONE (17:04)
[2025-01-02 17:30] LABS: Thyroid Stimulating Hormone 5.702 uIu/ml (0.300-4.500)
[2025-01-02 17:44] LABS: Hemoglobin A1C 8.5 % (4.5-5.6)
[2025-01-02 17:59] LABS: Folate (Folic Acid),Ser orPlas 10.86 ng/ml (>5.38)
[2025-01-02 18:00] LABS: Vitamin B12 258.0 pg/ml (180-914)
[2025-01-02] MEDS ORDERED: GLUCAGON FOR INJ 1 MG VIAL SQ PRN (18:53)
[2025-01-02] MEDS ORDERED: DEXTROSE 50% 50 ML SYRINGE IV PRN (18:53)
[2025-01-02] MEDS ORDERED: CARBOHYDRATES FOR HYPOGLYCEMIA PO PRN (18:53)
[2025-01-02] MEDS ORDERED: GLUCOSE 10 TAB/TUBE PO PRN (18:53)
[2025-01-02] MEDS ORDERED: GLUCOSE 40% GEL 15 GM TUBE PO PRN (18:53)
[2025-01-02] MEDS: SODIUM CHLORIDE 0.9% 1,000 ML IV SCH (19:23)
[2025-01-02] MEDS: MAGNESIUM SULFATE / D5W 1 GM/100 ML BAG IV SCH (19:48)
[2025-01-02] MEDS: ENOXAPARIN INJ 40 MG/0.4 ML SYR SQ SCH (19:52)
[2025-01-02] MEDS: DOCUSATE SODIUM/SENNA 50/8.6MG TAB PO SCH (19:55)
[2025-01-02] MEDS: MEMANTINE HCL 10 MG TAB PO SCH (19:55)
[2025-01-02] MEDS: DONEPEZIL HCL 5 MG TAB PO SCH (19:55)
[2025-01-02] MEDS: DIVALPROEX SODIUM SPRINKLE/DEL-REL 125 MG CAP PO SCH (19:55)
[2025-01-02] MEDS: CHLORHEXIDINE GLUCONATE 0.12% 480 ML MT SCH (19:56)
[2025-01-02] MEDS: ARTIFICIAL TEARS OP SCH (20:08)
[2025-01-02 20:18] LABS: Anion Gap 6.0 (3-11); Blood Urea Nitrogen 17.0 mg/dl (6-23); Calcium 7.8 mg/dl (8.6-10.3); Carbon Dioxide 24.0 mmol/L (21-32); Chloride 104.0 mmol/L (98-107); Creatinine Clr Calc Pharmacy 57.3 ml/min; Glucose 200.0 mg/dl (70-99(Fasting)); Potassium 3.8 mmol/L (3.5-5.1); Sodium 134.0 mmol/L (136-145)
[2025-01-02] MEDS ORDERED: LACTULOSE SYRUP 20 GM/30 ML UDC PO SCH (21:00)
[2025-01-02] MEDS: INSULIN ASPART PER UNIT CHARGE SC SCH (21:09)
[2025-01-02] MEDS: REMOVE LIDODERM PATCH SCH (21:10)
[2025-01-03] MEDS: LEVOTHYROXINE SODIUM 50 MCG TABLET PO SCH (05:59)
[2025-01-03 06:32] LABS: Hematocrit (blood only) 30.0 % (37.0-47.0); Hemoglobin 9.6 g/dl (12.0-16.0); Mean Corpuscular Hemoglobin 30.4 pg (25.0-34.0); Mean Corpuscular Volume 94.9 fL (80.0-100.0); Platelet Count 134 K/uL (130-400); RDW Standard Deviation 46.7 fL (36.4-46.3); Red Blood Count 3.16 M/uL (4.20-5.40); White Blood Count 3.88 K/ul (4.8-10.8)
[2025-01-03 07:14] LABS: Alanine Aminotransferase 31.0 U/L (7-52); Albumin Globulin Ratio 0.9 (0.9-2); Alkaline Phosphatase 54.0 U/L (34-104); Anion Gap 8.0 (3-11); Bilirubin,Total 0.3 mg/dl (0.2-1.0); Blood Urea Nitrogen 13.0 mg/dl (6-23); Calcium 7.6 mg/dl (8.6-10.3); Carbon Dioxide 24.0 mmol/L (21-32); Chloride 103.0 mmol/L (98-107); Creatinine Clr Calc Pharmacy 78.1 ml/min; Globulin 2.9 gm/dl (2.5-4.0); Glucose 127.0 mg/dl (70-99(Fasting)); Magnesium 1.9 mg/dl (1.7-2.4); Potassium 3.7 mmol/L (3.5-5.1); Sodium 135.0 mmol/L (136-145); Total Protein 5.5 gm/dl (6.0-8.3)
--- NOTE | 2025-01-03 07:53 | Hospitalist Progress Note ---
Date of Service January 03, 2025 Assessment & Plan (1) Acute hyponatremia: Plan Ms. Li is a 69 yo woman with history of schizoaffective d/o, DMTII, dementia, HLD, dry eyes, overactive bladder, CKDII, constipation is admitted for acute encephalopathy and questionable sepsis iso fever and tachycardia. There is no clear source of infection, but given patient's inability to participate in exam will continue abx until infectious work up results. High suspicion for dehydration and severe constipation contributing to acute presentation, however, suspect ongoing progressive process given report that patient has had ongoing decline. Plan for aggressive bowel regimen at this time. Encourage po at this time as labs indicate mixed picture for hyponatremia, would suspect poor po intake over course of last few days, but also labs suggest mild siadh likely. #Possible sepsis with fever/tachycardia, however, unclear source of infection #Severe constipation #Acute metabolic encephalopathy TMAX 38.3, recent ammonia level 73 12/24 with reduction of depakote level on 12/26 (recent level 35L) s/p 2L NS given elevated bun/cr ratio, acute hyponatremia, tachycardia, fever and severe constipation could be dehydrated completed recent Bactrim course, UA noncontributory no clear source of infection or localizing symptoms, RSV/flu/covid negative, no WBC -follow infectious work up: Blood cx pending -continue empiric zosyn, discontinue if negative -Delirium precautions -received lactulose and had a BM on admission -continue mirlax daily and senokot - ammonia level 26, B12 258, folate 10 01/03 Pt has abdominal discomfort this AM and reports she feels like she needs to have BM - RN at the bedside - will get bediside commode - cont. to closely monitor #Acute hyponatremia NA 130, normal serum osmo at 280 (iso hyperglycemia, corrected to 132), urine osmos and urine sodium suggest possible slight SIADH, perhaps iso of illness/severe constipation if downtrending given fluid bolus, would place FR 1.5L and trend bmp q4, consider nephrology Current Na 135 Hypomagnesemia - Mag on admission 1.4 replete and monitor Hypothyroidism - TSH ~5 - cont. home levothyroxine #Mild elevation AST AST 51, ALT 28 hold statin possibly iso illness/dehydration Trend cmp, if uptrending get US however, no cholecystitis or liver process noted on imaging #OAB hold fesoterodine iso confusion #DMTII hold home israelumet current Hgb A1C 8.5% sliding scale while admitted #CKDII CTM #HLD continue statin #Schizoaffective d/o continue valproic acid continue quetiapine continue sertraline #Dementia continue namenda and aricept DVT ppx Lovenox Dispo med/tele Admitting provider attempted to call brother Michael Li with no success, Admission and Anticipated Discharge Date Admission Date: January 02, 2025 Subjective Pt seen in follow up of poss. sepsis, severe constipation. [facility] report "going downhill for a while"" but no specifics Found febrile 38.3C, bowel regimen on admission and pt had a BM on admission On admission pt reportedly only able to say her name and that she is in the hospital Currently she is sitting up in bed in NAD, she answers appropriately and is cooperative. She tells me her name, and says she has abdominal discomfort, feels she needs to have a BM. Says she had some nausea. No chest pain or shortness of breath. When I ask her if she knows she is in the hospital she shakes her head as no. RN present at the bedside and discussed with, will get bedside commode for the pt. Review of Systems Review of Systems: All systems reviewed & are unremarkable except as noted in Subjective Physical Exam Physical Exam: GENERAL APPEARANCE: WD/WN elderly F in NAD HEENT: NC, AT. MMM. EOMI, clear conjunctiva NECK: Supple. HEART: Normal rate and regular rhythm, normal S1/S1, no m/r/g LUNGS: CTAB, moving air well. No crackles or wheezes are heard. ABDOMEN: mildly distended abdomen, BS+, + some diffuse tenderness on palp. EXTREMITIES: no LE edema, moves extremities NEUROLOGICAL: Awake and alert, able to answer some questions appropriately, speech fluent, no facial asymmetry Skin: Warm and dry without any rash. Results & Data Results & Data Vital Signs (Past 12 Hours) Vital Signs Temp Pulse Pulse Resp BP BP Pulse Ox 01/03/25 07:44 37 C 81 24 123/72 94 01/03/25 03:53 37.0 C 87 18 119/60 98 01/02/25 22:53 36.6 C 81 18 119/74 98 01/02/25 21:51 68 O2 Del Method 01/03/25 07:44 Room Air 01/03/25 03:53 Room Air 01/02/25 22:53 Room Air 01/02/25 21:51 Laboratory Results 01/03/25 01/02/25 01/02/25 Range/Units 05:56 21:01 19:40 WBC 3.88 L (4.8-10.8) K/ul RBC 3.16 L (4.20-5.40) M/uL Hgb 9.6 L (12.0-16.0) g/dl Hct 30.0 L (37.0-47.0) % MCV 94.9 (80.0-100.0) fL MCH 30.4 (25.0-34.0) pg MCHC 32.0 (32.0-36.0) g/dL RDW Std Deviation 46.7 H (36.4-46.3) fL RDW Coeff of Sukh 13.5 (11.5-14.5) % Plt Count 134 (130-400) K/uL MPV 10.6 (9.4-12.4) fL Immature Gran % (Auto) % Neut % (Auto) % Lymph % (Auto) % [place] % (Auto) % Eos % (Auto) % Baso % (Auto) % Neut # (Auto) (1.40-6.50) K/uL Lymph # (Auto) (1.20-3.40) K/uL [place] # (Auto) (0.11-0.59) K/uL Eos # (Auto) (0.00-0.50) K/uL Baso # (Auto) (0.00-0.20) K/uL Immature Gran # (Auto) (0.01-0.20) K/uL PT (9.0-12.0) Seconds INR (0.9-1.1) APTT (21-31) Seconds PTT Ratio VBG pH (7.36-7.41) VBG pCO2 (38-50) mmHg VBG pO2 mmHg VBG HCO3 mmol/L VBG O2 Saturation % VBG Base Excess mEq/L Sodium 135 L (136-145) mmol/L Potassium 3.7 (3.5-5.1) mmol/L Chloride 103 (98-107) mmol/L Carbon Dioxide 24 (21-32) mmol/L Anion Gap 8 (3-11) BUN 13 (6-23) mg/dl Creatinine 0.63 (0.6-1.2) mg/dl Est Cr Clr Drug Dosing 78.1 eGFR 96.57 BUN/Creatinine Ratio 20.6 H (10-20) Glucose 127 H (70-99(Fasting)) mg/dl POC Glucose 222 H (70-99) mg/dl Estimat Average Glucose mg/dl Hemoglobin A1c (4.5-5.6) % Osmolality (280-300) mOsm/kg Lactate (0.4-2.0) mmol/L Calcium 7.6 L (8.6-10.3) mg/dl Phosphorus 2.7 (2.5-4.9) mg/dl Magnesium 1.9 (1.7-2.4) mg/dl Total Bilirubin 0.3 (0.2-1.0) mg/dl Direct Bilirubin (0-0.2) mg/dl AST 57 H (13-39) U/L ALT 31 (7-52) U/L Alkaline Phosphatase 54 (34-104) U/L Ammonia (18-72) umol/L Troponin I High Sens (0-14) pg/ml Total Protein 5.5 L (6.0-8.3) gm/dl Albumin 2.6 L (3.4-5.0) gm/dl Globulin 2.9 (2.5-4.0) gm/dl Albumin/Globulin Ratio 0.9 (0.9-2) Lipase (11-82) U/L Vitamin B12 (180-914) pg/ml Folate (>5.38) ng/ml Procalcitonin (0-0.5) ng/ml TSH (0.300-4.500) uIu/ml Free T4 (0.61-1.60) ng/dl Urine Color Urine Appearance (Clear) Urine pH (4.5-7.5) Ur Specific Central (1.000-1.030) Urine Protein (Negative) Urine Glucose (UA) (Negative) Urine Ketones (Negative) Urine Blood (Negative) Urine Nitrite (Negative) Urine Bilirubin (Negative) Urine Urobilinogen (Negative) Ur Leukocyte Esterase (Negative) Urine WBC (Auto) (0-5) /hpf Urine RBC (Auto) (0-2) /hpf U Hyaline Cast (Auto) (0-2) /lpf U Epithel Cells (Auto) (0-2) /hpf Urine Bacteria (Auto) (None Seen) Urine Osmolality (500-800) mOsm/kg Ur Random Sodium mmol/L Urine Comment Nasal Screen MRSA (PCR) Negative (Negative) SARS-CoV-2 (PCR) (Negative) Influenza Type A (PCR) (Neg) Influenza Type B (PCR) (Neg) RSV (RT-PCR) (Neg) 01/02/25 01/02/25 01/02/25 Range/Units 19:34 18:51 17:01 WBC (4.8-10.8) K/ul RBC (4.20-5.40) M/uL Hgb (12.0-16.0) g/dl Hct (37.0-47.0) % MCV (80.0-100.0) fL MCH (25.0-34.0) pg MCHC (32.0-36.0) g/dL RDW Std Deviation (36.4-46.3) fL RDW Coeff of Sukh (11.5-14.5) % Plt Count (130-400) K/uL MPV (9.4-12.4) fL Immature Gran % (Auto) % Neut % (Auto) % Lymph % (Auto) % [place] % (Auto) % Eos % (Auto) % Baso % (Auto) % Neut # (Auto) (1.40-6.50) K/uL Lymph # (Auto) (1.20-3.40) K/uL [place] # (Auto) (0.11-0.59) K/uL Eos # (Auto) (0.00-0.50) K/uL Baso # (Auto) (0.00-0.20) K/uL Immature Gran # (Auto) (0.01-0.20) K/uL PT (9.0-12.0) Seconds INR (0.9-1.1) APTT (21-31) Seconds PTT Ratio VBG pH (7.36-7.41) VBG pCO2 (38-50) mmHg VBG pO2 mmHg VBG HCO3 mmol/L VBG O2 Saturation % VBG Base Excess mEq/L Sodium 134 L (136-145) mmol/L Potassium 3.8 (3.5-5.1) mmol/L Chloride 104 (98-107) mmol/L Carbon Dioxide 24 (21-32) mmol/L Anion Gap 6 (3-11) BUN 17 (6-23) mg/dl Creatinine 0.86 (0.6-1.2) mg/dl Est Cr Clr Drug Dosing 57.3 eGFR 73.54 BUN/Creatinine Ratio 19.8 (10-20) Glucose 200 H (70-99(Fasting)) mg/dl POC Glucose 201 H (70-99) mg/dl Estimat Average Glucose mg/dl Hemoglobin A1c (4.5-5.6) % Osmolality (280-300) mOsm/kg Lactate (0.4-2.0) mmol/L Calcium 7.8 L (8.6-10.3) mg/dl Phosphorus (2.5-4.9) mg/dl Magnesium (1.7-2.4) mg/dl Total Bilirubin (0.2-1.0) mg/dl Direct Bilirubin (0-0.2) mg/dl AST (13-39) U/L ALT (7-52) U/L Alkaline Phosphatase (34-104) U/L Ammonia (18-72) umol/L Troponin I High Sens (0-14) pg/ml Total Protein (6.0-8.3) gm/dl Albumin (3.4-5.0) gm/dl Globulin (2.5-4.0) gm/dl Albumin/Globulin Ratio (0.9-2) Lipase 34 (11-82) U/L Vitamin B12 (180-914) pg/ml Folate (>5.38) ng/ml Procalcitonin (0-0.5) ng/ml TSH (0.300-4.500) uIu/ml Free T4 (0.61-1.60) ng/dl Urine Color Urine Appearance (Clear) Urine pH (4.5-7.5) Ur Specific Central (1.000-1.030) Urine Protein (Negative) Urine Glucose (UA) (Negative) Urine Ketones (Negative) Urine Blood (Negative) Urine Nitrite (Negative) Urine Bilirubin (Negative) Urine Urobilinogen (Negative) Ur Leukocyte Esterase (Negative) Urine WBC (Auto) (0-5) /hpf Urine RBC (Auto) (0-2) /hpf U Hyaline Cast (Auto) (0-2) /lpf U Epithel Cells (Auto) (0-2) /hpf Urine Bacteria (Auto) (None Seen) Urine Osmolality (500-800) mOsm/kg Ur Random Sodium mmol/L Urine Comment Nasal Screen MRSA (PCR) (Negative) SARS-CoV-2 (PCR) (Negative) Influenza Type A (PCR) (Neg) Influenza Type B (PCR) (Neg) RSV (RT-PCR) (Neg) 01/02/25 01/02/25 01/02/25 Range/Units 16:59 15:13 14:43 WBC (4.8-10.8) K/ul RBC (4.20-5.40) M/uL Hgb (12.0-16.0) g/dl Hct (37.0-47.0) % MCV (80.0-100.0) fL MCH (25.0-34.0) pg MCHC (32.0-36.0) g/dL RDW Std Deviation (36.4-46.3) fL RDW Coeff of Sukh (11.5-14.5) % Plt Count (130-400) K/uL MPV (9.4-12.4) fL Immature Gran % (Auto) % Neut % (Auto) % Lymph % (Auto) % [place] % (Auto) % Eos % (Auto) % Baso % (Auto) % Neut # (Auto) (1.40-6.50) K/uL Lymph # (Auto) (1.20-3.40) K/uL [place] # (Auto) (0.11-0.59) K/uL Eos # (Auto) (0.00-0.50) K/uL Baso # (Auto) (0.00-0.20) K/uL Immature Gran # (Auto) (0.01-0.20) K/uL PT (9.0-12.0) Seconds INR (0.9-1.1) APTT (21-31) Seconds PTT Ratio VBG pH 7.49 H (7.36-7.41) VBG pCO2 32 L (38-50) mmHg VBG pO2 69 mmHg VBG HCO3 24 mmol/L VBG O2 Saturation 95.9 % VBG Base Excess 1.7 mEq/L Sodium (136-145) mmol/L Potassium (3.5-5.1) mmol/L Chloride (98-107) mmol/L Carbon Dioxide (21-32) mmol/L Anion Gap (3-11) BUN (6-23) mg/dl Creatinine (0.6-1.2) mg/dl Est Cr Clr Drug Dosing eGFR BUN/Creatinine Ratio (10-20) Glucose (70-99(Fasting)) mg/dl POC Glucose (70-99) mg/dl Estimat Average Glucose mg/dl Hemoglobin A1c (4.5-5.6) % Osmolality (280-300) mOsm/kg Lactate (0.4-2.0) mmol/L Calcium (8.6-10.3) mg/dl Phosphorus (2.5-4.9) mg/dl Magnesium (1.7-2.4) mg/dl Total Bilirubin (0.2-1.0) mg/dl Direct Bilirubin (0-0.2) mg/dl AST (13-39) U/L ALT (7-52) U/L Alkaline Phosphatase (34-104) U/L Ammonia 26.0 (18-72) umol/L Troponin I High Sens (0-14) pg/ml Total Protein (6.0-8.3) gm/dl Albumin (3.4-5.0) gm/dl Globulin (2.5-4.0) gm/dl Albumin/Globulin Ratio (0.9-2) Lipase (11-82) U/L Vitamin B12 (180-914) pg/ml Folate (>5.38) ng/ml Procalcitonin (0-0.5) ng/ml TSH (0.300-4.500) uIu/ml Free T4 (0.61-1.60) ng/dl Urine Color Yellow Urine Appearance Clear (Clear) Urine pH 6.0 (4.5-7.5) Ur Specific Central 1.021 (1.000-1.030) Urine Protein 2+ H (Negative) Urine Glucose (UA) 1+ H (Negative) Urine Ketones Trace H (Negative) Urine Blood Negative (Negative) Urine Nitrite Negative (Negative) Urine Bilirubin Negative (Negative) Urine Urobilinogen Negative (Negative) Ur Leukocyte Esterase Negative (Negative) Urine WBC (Auto) 0-5 (0-5) /hpf Urine RBC (Auto) 0-2 (0-2) /hpf U Hyaline Cast (Auto) 0-2 (0-2) /lpf U Epithel Cells (Auto) 3-5 H (0-2) /hpf Urine Bacteria (Auto) None Seen (None Seen) Urine Osmolality 583 (500-800) mOsm/kg Ur Random Sodium 41 mmol/L Urine Comment Nasal Screen MRSA (PCR) (Negative) SARS-CoV-2 (PCR) (Negative) Influenza Type A (PCR) (Neg) Influenza Type B (PCR) (Neg) RSV (RT-PCR) (Neg) 01/02/25 01/02/25 01/02/25 Range/Units 14:26 14:21 14:20 WBC 5.78 (4.8-10.8) K/ul RBC 3.42 L (4.20-5.40) M/uL Hgb 10.6 L (12.0-16.0) g/dl Hct 31.7 L (37.0-47.0) % MCV 92.7 (80.0-100.0) fL MCH 31.0 (25.0-34.0) pg MCHC 33.4 (32.0-36.0) g/dL RDW Std Deviation 46.0 (36.4-46.3) fL RDW Coeff of Sukh 13.6 (11.5-14.5) % Plt Count 146 (130-400) K/uL MPV 10.1 (9.4-12.4) fL Immature Gran % (Auto) 2.2 % Neut % (Auto) 88.6 % Lymph % (Auto) 6.4 % [place] % (Auto) 1.6 % Eos % (Auto) 0.9 % Baso % (Auto) 0.3 % Neut # (Auto) 5.12 (1.40-6.50) K/uL Lymph # (Auto) 0.37 L (1.20-3.40) K/uL [place] # (Auto) 0.09 L (0.11-0.59) K/uL Eos # (Auto) 0.05 (0.00-0.50) K/uL Baso # (Auto) 0.02 (0.00-0.20) K/uL Immature Gran # (Auto) 0.13 (0.01-0.20) K/uL PT 12.2 H (9.0-12.0) Seconds INR 1.1 (0.9-1.1) APTT 35 H (21-31) Seconds PTT Ratio 1.3 VBG pH (7.36-7.41) VBG pCO2 (38-50) mmHg VBG pO2 mmHg VBG HCO3 mmol/L VBG O2 Saturation % VBG Base Excess mEq/L Sodium 130 L (136-145) mmol/L Potassium 4.6 (3.5-5.1) mmol/L Chloride 98 (98-107) mmol/L Carbon Dioxide 24 (21-32) mmol/L Anion Gap 8 (3-11) BUN 21 (6-23) mg/dl Creatinine 0.88 (0.6-1.2) mg/dl Est Cr Clr Drug Dosing Not Reportable eGFR 71.54 BUN/Creatinine Ratio 23.9 H (10-20) Glucose 232 H (70-99(Fasting)) mg/dl POC Glucose 255 H (70-99) mg/dl Estimat Average Glucose 197 mg/dl Hemoglobin A1c 8.5 H (4.5-5.6) % Osmolality 280 (280-300) mOsm/kg Lactate 1.4 (0.4-2.0) mmol/L Calcium 8.2 L (8.6-10.3) mg/dl Phosphorus (2.5-4.9) mg/dl Magnesium 1.4 L (1.7-2.4) mg/dl Total Bilirubin 0.3 (0.2-1.0) mg/dl Direct Bilirubin 0.1 (0-0.2) mg/dl AST 51 H (13-39) U/L ALT 28 (7-52) U/L Alkaline Phosphatase 57 (34-104) U/L Ammonia (18-72) umol/L Troponin I High Sens 12.4 (0-14) pg/ml Total Protein 6.1 (6.0-8.3) gm/dl Albumin 2.9 L (3.4-5.0) gm/dl Globulin (2.5-4.0) gm/dl Albumin/Globulin Ratio (0.9-2) Lipase (11-82) U/L Vitamin B12 258 (180-914) pg/ml Folate 10.86 (>5.38) ng/ml Procalcitonin 0.67 H (0-0.5) ng/ml TSH 5.702 H (0.300-4.500) uIu/ml Free T4 0.80 (0.61-1.60) ng/dl Urine Color Urine Appearance (Clear) Urine pH (4.5-7.5) Ur Specific Central (1.000-1.030) Urine Protein (Negative) Urine Glucose (UA) (Negative) Urine Ketones (Negative) Urine Blood (Negative) Urine Nitrite (Negative) Urine Bilirubin (Negative) Urine Urobilinogen (Negative) Ur Leukocyte Esterase (Negative) Urine WBC (Auto) (0-5) /hpf Urine RBC (Auto) (0-2) /hpf U Hyaline Cast (Auto) (0-2) /lpf U Epithel Cells (Auto) (0-2) /hpf Urine Bacteria (Auto) (None Seen) Urine Osmolality (500-800) mOsm/kg Ur Random Sodium mmol/L Urine Comment Nasal Screen MRSA (PCR) (Negative) SARS-CoV-2 (PCR) NEGATIVE (Negative) Influenza Type A (PCR) Negative (Neg) Influenza Type B (PCR) Negative (Neg) RSV (RT-PCR) Negative (Neg) Medications Administered Current Inpatient Medications Artificial Tears (Artificial Tears) 1 drops OP BID ESTELLE Stop: 02/01/25 20:59 Last Admin: 01/03/25 08:41 Dose: 1 drops Chlorhexidine Gluconate (Chlorhexidine Gluconate 0.12% 480 Ml) 15 ml MT BID ESTELLE Stop: 02/01/25 20:59 Last Admin: 01/03/25 08:41 Dose: 15 ml Cyanocobalamin (Cyanocobalamin (B-12) 500 Mcg Tablet) 500 mcg PO QAM [facility] Stop: 02/02/25 08:59 Last Admin: 01/03/25 08:46 Dose: 500 mcg Dextrose (Dextrose 50% 50 Ml Syringe) 25 - 50 ml IV UD PRN; Protocol PRN Reason: Hypoglycemia Protocol Stop: 02/01/25 18:52 Divalproex Sodium (Divalproex Sodium Sprinkle/Del-Rel 125 Mg Cap) 125 mg PO TID ESTELLE Stop: 02/01/25 20:59 Last Admin: 01/03/25 08:40 Dose: 125 mg Donepezil HCl (Donepezil Hcl 5 Mg Tab) 5 mg PO HS [facility] Stop: 02/01/25 20:59 Last Admin: 01/02/25 19:55 Dose: 5 mg Enoxaparin Sodium (Enoxaparin Inj 40 Mg/0.4 Ml Syr) 40 mg SQ Q24H [facility] Stop: 02/01/25 17:59 Last Admin: 01/02/25 19:52 Dose: 40 mg Glucagon (Glucagon For Inj 1 Mg Vial) 1 mg SQ UD PRN; Protocol PRN Reason: Hypoglycemia Protocol Stop: 02/01/25 18:52 Glucose (Glucose 40% Gel 15 Gm Tube) 15 - 30 gm PO UD PRN; Protocol PRN Reason: Hypoglycemia Protocol Stop: 02/01/25 18:52 Glucose (Glucose 10 Tab/Tube) 4 - 8 tab PO UD PRN; Protocol PRN Reason: Hypoglycemia Protocol Stop: 02/01/25 18:52 Piperacillin Sod/Tazobactam Sod (Zosyn) 4.5 gm in 100 mls @ 25 mls/hr IV Q8H ESTELLE; Protocol Stop: 01/05/25 13:59 Insulin Aspart (Insulin Aspart Per Unit Charge) 0 units SC ACHS [facility] Stop: 02/01/25 20:59 Last Admin: 01/03/25 08:41 Dose: Not Given Levothyroxine Sodium (Levothyroxine Sodium 50 Mcg Tablet) 50 mcg PO DAILYBB [facility] Stop: 02/02/25 06:29 Last Admin: 01/03/25 05:59 Dose: 50 mcg Lidocaine (Lidocaine 5% 1 Patch) 1 patch TD DAILY [facility] Stop: 02/02/25 08:59 Last Admin: 01/03/25 08:40 Dose: 1 patch Memantine (Memantine Hcl 10 Mg Tab) 10 mg PO BID [facility] Stop: 02/01/25 20:59 Last Admin: 01/03/25 08:39 Dose: 10 mg Miscellaneous (Remove Lidoderm Patch) 1 each N/A DAILY@2100 [facility] Stop: 02/01/25 20:59 Last Admin: 01/02/25 21:10 Dose: 1 each Miscellaneous (Carbohydrates For Hypoglycemia ) 15 - 30 gm PO UD PRN PRN Reason: Hypoglycemia Protocol Stop: 02/01/25 18:52 Polyethylene Glycol (Polyethylene (Miralax) 17 Gm Pack) 17 gm PO DAILY [facility]ELLE Stop: 02/02/25 08:59 Last Admin: 01/03/25 08:39 Dose: 17 gm Potassium Chloride (Potassium Chloride Crtab 20 Meq Tabcr) 20 meq PO NOW STA Stop: 01/03/25 11:01 Senna/Docusate Sodium (Docusate Sodium/Senna 50/8.6mg Tab) 1 tab PO QAM ESTELLE Stop: 02/01/25 17:14 Last Admin: 01/03/25 08:39 Dose: 1 tab Sertraline HCl (Sertraline Hcl 100 Mg Tablet) 100 mg PO QAM ESTELLE Stop: 02/02/25 08:59 Last Admin: 01/03/25 08:40 Dose: 100 mg Vitamin D (Cholecalciferol 25 Mcg (1000 Units) Tab) 25 mcg PO DAILY ESTELLE Stop: 02/02/25 08:59 Last Admin: 01/03/25 08:39 Dose: 25 mcg
[2025-01-03] MEDS: POLYETHYLENE (MIRALAX) 17 GM PACK PO SCH (08:39)
[2025-01-03] MEDS: CHOLECALCIFEROL 25 MCG (1000 UNITS) TAB PO SCH (08:39)
[2025-01-03] MEDS: SERTRALINE HCL 100 MG TABLET PO SCH (08:40)
[2025-01-03] MEDS: LIDOCAINE 5% 1 PATCH TD SCH (08:40)
[2025-01-03] MEDS: PIPERACILLIN/TAZOBACTAM 4.5 GM/100 ML BAG IV ONE (08:46)
[2025-01-03] MEDS: CYANOCOBALAMIN (B-12) 500 MCG TABLET PO SCH (08:46)
[2025-01-03] MEDS: PNEUMOCOCCAL VACCINE (PCV20) 20-VAL CONJ-DIP CRM/PF 0.5 ML SYR IM ONE (08:47)
[2025-01-03] MEDS: SODIUM CHLORIDE 0.9% 500 ML IV ONE (12:54)
[2025-01-03] MEDS: POTASSIUM CHLORIDE CRTAB 20 MEQ TABCR PO STA (12:54)
[2025-01-03] MEDS: PIPERACILLIN/TAZOBACTAM 4.5 GM/100 ML BAG IV SCH (14:50)
--- NOTE | 2025-01-03 16:32 | Electrocardiogram Report ---
Test Reason : Blood Pressure : */* mmHG Vent. Rate : 112 BPM Atrial Rate : 112 BPM P-R Int : 112 ms QRS Dur : 74 ms QT Int : 314 ms P-R-T Axes : 44 7 48 degrees QTcB Int : 428 ms Sinus tachycardia Cannot rule out Anterior infarct , age undetermined Abnormal ECG No previous ECGs available Confirmed by Daren Moseley ([id number]) on 01/03/2025 4:31:55 PM Referred By: [facility] Confirmed By: Daren Moseley
[2025-01-04 07:11] LABS: Hematocrit (blood only) 29.1 % (37.0-47.0); Hemoglobin 9.4 g/dl (12.0-16.0); Mean Corpuscular Hemoglobin 30.6 pg (25.0-34.0); Mean Corpuscular Volume 94.8 fL (80.0-100.0); Platelet Count 151 K/uL (130-400); RDW Standard Deviation 46.5 fL (36.4-46.3); Red Blood Count 3.07 M/uL (4.20-5.40); White Blood Count 3.79 K/ul (4.8-10.8)
[2025-01-04 07:25] LABS: Alanine Aminotransferase 54.0 U/L (7-52); Albumin Globulin Ratio 0.9 (0.9-2); Alkaline Phosphatase 57.0 U/L (34-104); Anion Gap 8.0 (3-11); Bilirubin,Total 0.4 mg/dl (0.2-1.0); Blood Urea Nitrogen 13.0 mg/dl (6-23); Calcium 8.0 mg/dl (8.6-10.3); Carbon Dioxide 24.0 mmol/L (21-32); Chloride 104.0 mmol/L (98-107); Creatinine Clr Calc Pharmacy 72.4 ml/min; Globulin 3.0 gm/dl (2.5-4.0); Glucose 159.0 mg/dl (70-99(Fasting)); Magnesium 1.8 mg/dl (1.7-2.4); Potassium 3.9 mmol/L (3.5-5.1); Sodium 136.0 mmol/L (136-145); Total Protein 5.6 gm/dl (6.0-8.3)
--- NOTE | 2025-01-04 12:03 | Hospitalist Progress Note ---
Date of Service January 04, 2025 Assessment & Plan (1) Acute hyponatremia: Plan Ms. Li is a 69 yo woman with history of schizoaffective d/o, DMTII, dementia, HLD, dry eyes, overactive bladder, CKDII, constipation is admitted for acute encephalopathy and questionable sepsis iso fever and tachycardia. There is no clear source of infection, but given patient's inability to participate in exam will continue abx until infectious work up results. High suspicion for dehydration and severe constipation contributing to acute presentation, however, suspect ongoing progressive process given report that patient has had ongoing decline. Plan for aggressive bowel regimen at this time. Encourage po at this time as labs indicate mixed picture for hyponatremia, would suspect poor po intake over course of last few days, but also labs suggest mild siadh likely. #Possible sepsis with fever/tachycardia, however, unclear source of infection #Severe constipation #Acute metabolic encephalopathy TMAX 38.3, recent ammonia level 73 12/24 with reduction of depakote level on 12/26 (recent level 35L) s/p 2L NS given elevated bun/cr ratio, acute hyponatremia, tachycardia, fever and severe constipation could be dehydrated completed recent Bactrim course, UA noncontributory no clear source of infection or localizing symptoms, RSV/flu/covid negative, no WBC -follow infectious work up: Blood cx pending -continue empiric zosyn, discontinue if negative -Delirium precautions -received lactulose and had a BM on admission -continue mirlax daily and senokot - ammonia level 26, B12 258, folate 10 01/03 Pt has abdominal discomfort this AM and reports she feels like she needs to have BM - RN at the bedside - will get bediside commode - cont. to closely monitor 01/04 Pt did not have a BM yesterday, still reports abdominal discomfort but can't specify anything else. Per RN pt had some PO intake then did not want anything. Will continue with bowel regimen and will cont. to closely monitor. #Acute hyponatremia NA 130, normal serum osmo at 280 (iso hyperglycemia, corrected to 132), urine osmos and urine sodium suggest possible slight SIADH, perhaps iso of illness/severe constipation if downtrending given fluid bolus, would place FR 1.5L and trend bmp q4, consider nephrology Current Na 136 Hypomagnesemia - Mag on admission 1.4 replete and monitor Hypothyroidism - TSH ~5 - cont. home levothyroxine #Mild elevation AST AST 51, ALT 28 hold statin possibly iso illness/dehydration Trend cmp, if uptrending get US however, no cholecystitis or liver process noted on imaging #OAB hold fesoterodine iso confusion #DMTII hold home janumet current Hgb A1C 8.5% sliding scale while admitted #CKDII CTM #HLD continue statin #Schizoaffective d/o continue valproic acid continue quetiapine continue sertraline #Dementia continue namenda and aricept DVT ppx Lovenox Dispo med/tele Admission and Anticipated Discharge Date Admission Date: January 02, 2025 Subjective Pt seen in follow up of poss. sepsis, severe constipation. Pt from [facility], per report "going downhill for a while"" but no specifics Found febrile 38.3C, bowel regimen on admission and pt had a BM on admission On admission pt reportedly only able to say her name and that she is in the hospital Currently she is sitting up in bed in NAD, she answers appropriately and is cooperative. She tells me her name, and says she has abdominal discomfort,. Yesterday she felt she would have a BM, they placed her on commode but she did not have a BM. Discussed w/ RN, will continue with bowel regimen, and will closely monitor. Pt does not specify anything else. Per RN was able to have some PO intake, then decided she did not want anything. Review of Systems Review of Systems: All systems reviewed & are unremarkable except as noted in Subjective Physical Exam Physical Exam: GENERAL APPEARANCE: WD/WN elderly F in NAD HEENT: NC, AT. MMM. EOMI, clear conjunctiva NECK: Supple. HEART: Normal rate and regular rhythm, normal S1/S1, no m/r/g LUNGS: CTAB, moving air well. No crackles or wheezes are heard. ABDOMEN: mildly distended abdomen, BS+, + some diffuse tenderness on palp. EXTREMITIES: no LE edema, moves extremities NEUROLOGICAL: Awake and alert, able to answer some questions appropriately, speech fluent, no facial asymmetry Skin: Warm and dry without any rash. Results & Data Results & Data Vital Signs (Past 12 Hours) Vital Signs Temp Pulse Pulse Resp BP BP Pulse Ox 01/04/25 11:21 36.8 C 77 16 122/76 95 01/04/25 09:00 68 01/04/25 08:26 36.7 C 67 16 140/84 96 01/04/25 04:00 36.6 C 65 18 132/77 94 O2 Del Method 01/04/25 11:21 Room Air 01/04/25 09:00 01/04/25 08:26 Room Air 01/04/25 04:00 Room Air Laboratory Results 01/04/25 01/04/25 01/03/25 Range/Units 08:12 05:55 20:17 WBC 3.79 L (4.8-10.8) K/ul RBC 3.07 L (4.20-5.40) M/uL Hgb 9.4 L (12.0-16.0) g/dl Hct 29.1 L (37.0-47.0) % MCV 94.8 (80.0-100.0) fL MCH 30.6 (25.0-34.0) pg MCHC 32.3 (32.0-36.0) g/dL RDW Std Deviation 46.5 H (36.4-46.3) fL RDW Coeff of Sukh 13.5 (11.5-14.5) % Plt Count 151 (130-400) K/uL MPV 10.6 (9.4-12.4) fL Sodium 136 (136-145) mmol/L Potassium 3.9 (3.5-5.1) mmol/L Chloride 104 (98-107) mmol/L Carbon Dioxide 24 (21-32) mmol/L Anion Gap 8 (3-11) BUN 13 (6-23) mg/dl Creatinine 0.68 (0.6-1.2) mg/dl Est Cr Clr Drug Dosing 72.4 ml/min eGFR 94.81 BUN/Creatinine Ratio 19.1 (10-20) Glucose 159 H (70-99(Fasting)) mg/dl POC Glucose 219 H 226 H (70-99) mg/dl Calcium 8.0 L (8.6-10.3) mg/dl Phosphorus 3.4 (2.5-4.9) mg/dl Magnesium 1.8 (1.7-2.4) mg/dl Total Bilirubin 0.4 (0.2-1.0) mg/dl AST 88 H (13-39) U/L ALT 54 H (7-52) U/L Alkaline Phosphatase 57 (34-104) U/L Total Protein 5.6 L (6.0-8.3) gm/dl Albumin 2.6 L (3.4-5.0) gm/dl Globulin 3.0 (2.5-4.0) gm/dl Albumin/Globulin Ratio 0.9 (0.9-2) 01/03/25 Range/Units 16:45 WBC (4.8-10.8) K/ul RBC (4.20-5.40) M/uL Hgb (12.0-16.0) g/dl Hct (37.0-47.0) % MCV (80.0-100.0) fL MCH (25.0-34.0) pg MCHC (32.0-36.0) g/dL RDW Std Deviation (36.4-46.3) fL RDW Coeff of Sukh (11.5-14.5) % Plt Count (130-400) K/uL MPV (9.4-12.4) fL Sodium (136-145) mmol/L Potassium (3.5-5.1) mmol/L Chloride (98-107) mmol/L Carbon Dioxide (21-32) mmol/L Anion Gap (3-11) BUN (6-23) mg/dl Creatinine (0.6-1.2) mg/dl Est Cr Clr Drug Dosing ml/min eGFR BUN/Creatinine Ratio (10-20) Glucose (70-99(Fasting)) mg/dl POC Glucose 138 H (70-99) mg/dl Calcium (8.6-10.3) mg/dl Phosphorus (2.5-4.9) mg/dl Magnesium (1.7-2.4) mg/dl Total Bilirubin (0.2-1.0) mg/dl AST (13-39) U/L ALT (7-52) U/L Alkaline Phosphatase (34-104) U/L Total Protein (6.0-8.3) gm/dl Albumin (3.4-5.0) gm/dl Globulin (2.5-4.0) gm/dl Albumin/Globulin Ratio (0.9-2) Medications Administered Current Inpatient Medications Artificial Tears (Artificial Tears) 1 drops OP BID ESTELLE Stop: 02/01/25 20:59 Last Admin: 01/04/25 08:57 Dose: 1 drops Chlorhexidine Gluconate (Chlorhexidine Gluconate 0.12% 480 Ml) 15 ml MT BID ESTELLE Stop: 02/01/25 20:59 Last Admin: 01/04/25 08:57 Dose: 15 ml Cyanocobalamin (Cyanocobalamin (B-12) 500 Mcg Tablet) 500 mcg PO QAM ESTELLE Stop: 02/02/25 08:59 Last Admin: 01/04/25 08:56 Dose: 500 mcg Dextrose (Dextrose 50% 50 Ml Syringe) 25 - 50 ml IV UD PRN; Protocol PRN Reason: Hypoglycemia Protocol Stop: 02/01/25 18:52 Divalproex Sodium (Divalproex Sodium Sprinkle/Del-Rel 125 Mg Cap) 125 mg PO TID ESTELLE Stop: 02/01/25 20:59 Last Admin: 01/04/25 08:56 Dose: 125 mg Donepezil HCl (Donepezil Hcl 5 Mg Tab) 5 mg PO HS ESTELLE Stop: 02/01/25 20:59 Last Admin: 01/03/25 20:34 Dose: 5 mg Enoxaparin Sodium (Enoxaparin Inj 40 Mg/0.4 Ml Syr) 40 mg SQ Q24H ESTELLE Stop: 02/01/25 17:59 Last Admin: 01/03/25 17:51 Dose: 40 mg Glucagon (Glucagon For Inj 1 Mg Vial) 1 mg SQ UD PRN; Protocol PRN Reason: Hypoglycemia Protocol Stop: 02/01/25 18:52 Glucose (Glucose 40% Gel 15 Gm Tube) 15 - 30 gm PO UD PRN; Protocol PRN Reason: Hypoglycemia Protocol Stop: 02/01/25 18:52 Glucose (Glucose 10 Tab/Tube) 4 - 8 tab PO UD PRN; Protocol PRN Reason: Hypoglycemia Protocol Stop: 02/01/25 18:52 Piperacillin Sod/Tazobactam Sod (Zosyn) 4.5 gm in 100 mls @ 25 mls/hr IV Q8H ESTELLE; Protocol Stop: 01/05/25 13:59 Last Infusion: 01/04/25 10:35 Dose: Infused Insulin Aspart (Insulin Aspart Per Unit Charge) 0 units SC ACHS [facility] Stop: 02/01/25 20:59 Last Admin: 01/04/25 08:58 Dose: 2 units Levothyroxine Sodium (Levothyroxine Sodium 50 Mcg Tablet) 50 mcg PO DAILYBB ESTELLE Stop: 02/02/25 06:29 Last Admin: 01/04/25 05:58 Dose: 50 mcg Lidocaine (Lidocaine 5% 1 Patch) 1 patch TD DAILY ESTELLE Stop: 02/02/25 08:59 Last Admin: 01/04/25 08:57 Dose: 1 patch Memantine (Memantine Hcl 10 Mg Tab) 10 mg PO BID ESTELLE Stop: 02/01/25 20:59 Last Admin: 01/04/25 08:56 Dose: 10 mg Miscellaneous (Remove Lidoderm Patch) 1 each N/A DAILY@2100 ESTELLE Stop: 02/01/25 20:59 Last Admin: 01/03/25 20:33 Dose: 1 each Miscellaneous (Carbohydrates For Hypoglycemia ) 15 - 30 gm PO UD PRN PRN Reason: Hypoglycemia Protocol Stop: 02/01/25 18:52 Polyethylene Glycol (Polyethylene (Miralax) 17 Gm Pack) 17 gm PO DAILY ESTELLE Stop: 02/02/25 08:59 Last Admin: 01/04/25 08:56 Dose: 17 gm Senna/Docusate Sodium (Docusate Sodium/Senna 50/8.6mg Tab) 1 tab PO QAM ESTELLE Stop: 02/01/25 17:14 Last Admin: 01/04/25 08:56 Dose: 1 tab Sertraline HCl (Sertraline Hcl 100 Mg Tablet) 100 mg PO QAM ESTELLE Stop: 02/02/25 08:59 Last Admin: 01/04/25 08:56 Dose: 100 mg Vitamin D (Cholecalciferol 25 Mcg (1000 Units) Tab) 25 mcg PO DAILY ESTELLE Stop: 02/02/25 08:59 Last Admin: 01/04/25 08:56 Dose: 25 mcg
[2025-01-05 06:42] LABS: Hematocrit (blood only) 29.2 % (37.0-47.0); Hemoglobin 9.5 g/dl (12.0-16.0); Mean Corpuscular Hemoglobin 30.6 pg (25.0-34.0); Mean Corpuscular Volume 94.2 fL (80.0-100.0); Platelet Count 179 K/uL (130-400); RDW Standard Deviation 46.6 fL (36.4-46.3); Red Blood Count 3.10 M/uL (4.20-5.40); White Blood Count 4.28 K/ul (4.8-10.8)
[2025-01-05 07:33] LABS: Alanine Aminotransferase 52.0 U/L (7-52); Albumin Globulin Ratio 0.9 (0.9-2); Alkaline Phosphatase 56.0 U/L (34-104); Anion Gap 8.0 (3-11); Bilirubin,Total 0.3 mg/dl (0.2-1.0); Blood Urea Nitrogen 12.0 mg/dl (6-23); Calcium 8.2 mg/dl (8.6-10.3); Carbon Dioxide 26.0 mmol/L (21-32); Chloride 104.0 mmol/L (98-107); Creatinine Clr Calc Pharmacy 69.8 ml/min; Globulin 3.0 gm/dl (2.5-4.0); Glucose 177.0 mg/dl (70-99(Fasting)); Magnesium 1.7 mg/dl (1.7-2.4); Potassium 3.7 mmol/L (3.5-5.1); Sodium 138.0 mmol/L (136-145); Total Protein 5.7 gm/dl (6.0-8.3)
[2025-01-05] MEDS: POTASSIUM CHLORIDE CRTAB 20 MEQ TABCR PO STA (09:34)
[2025-01-05] MEDS: MAGNESIUM OXIDE 400 MG TAB PO SCH (09:39)
--- NOTE | 2025-01-05 10:19 | Hospitalist Progress Note ---
Date of Service January 05, 2025 Assessment & Plan (1) Acute hyponatremia: Plan Ms. Li is a 69 yo woman with history of schizoaffective d/o, DMTII, dementia, HLD, dry eyes, overactive bladder, CKDII, constipation is admitted for acute encephalopathy and questionable sepsis iso fever and tachycardia. There is no clear source of infection, but given patient's inability to participate in exam will continue abx until infectious work up results. High suspicion for dehydration and severe constipation contributing to acute presentation, however, suspect ongoing progressive process given report that patient has had ongoing decline. Plan for aggressive bowel regimen at this time. Encourage po at this time as labs indicate mixed picture for hyponatremia, would suspect poor po intake over course of last few days, but also labs suggest mild siadh likely. #Possible sepsis with fever/tachycardia, however, unclear source of infection #Severe constipation #Acute metabolic encephalopathy TMAX 38.3, recent ammonia level 73 12/24 with reduction of depakote level on 12/26 (recent level 35L) s/p 2L NS given elevated bun/cr ratio, acute hyponatremia, tachycardia, fever and severe constipation could be dehydrated completed recent Bactrim course, UA noncontributory no clear source of infection or localizing symptoms, RSV/flu/covid negative, no WBC -follow infectious work up: Blood cx negat. in 48 hrs -continue empiric zosyn for now -Delirium precautions -received lactulose and had a BM on admission -continue mirlax daily and senokot - ammonia level 26, B12 258, folate 10 01/03 Pt has abdominal discomfort this AM and reports she feels like she needs to have BM - RN at the bedside - will get bediside commode - cont. to closely monitor 01/04 Pt did not have a BM yesterday, still reports abdominal discomfort but can't specify anything else. Per RN pt had some PO intake then did not want anything. Will continue with bowel regimen and will cont. to closely monitor. 01/05 now having some loose stools/incontinence and also reports LLQ abd. discomfort. Will obtain KUB to assess stool burden/ any other abnormality #Acute hyponatremia NA 130, normal serum osmo at 280 (iso hyperglycemia, corrected to 132), urine osmos and urine sodium suggest possible slight SIADH, perhaps iso of illness/severe constipation improving - Current Na 138 Hypomagnesemia - Mag on admission 1.4 replete and monitor Hypothyroidism - TSH ~5 - cont. home levothyroxine #Mild elevation AST AST 51, ALT 28 hold statin possibly iso illness/dehydration Trend cmp, if uptrending get US however, no cholecystitis or liver process noted on imaging #OAB hold fesoterodine iso confusion #DMTII hold home janumet current Hgb A1C 8.5% sliding scale while admitted #CKDII CTM #HLD continue statin #Schizoaffective d/o continue valproic acid continue quetiapine continue sertraline #Dementia continue namenda and aricept DVT ppx Lovenox Dispo med/tele Admission and Anticipated Discharge Date Admission Date: January 02, 2025 Subjective Pt seen in follow up of poss. sepsis, severe constipation. Pt from [facility], per report "going downhill for a while"" but no specifics Found febrile 38.3C, bowel regimen on admission and pt had a BM on admission On admission pt reportedly only able to say her name and that she is in the hospital Currently she is sitting up in bed in NAD, she answers some simple questions appropriately and is cooperative. She tells me her name, and says she has abdominal discomfort in LLQ and that her IV in her left arm is bothering her. No other complaints. She found to be soiled on my exam and I did notified RN. Will obtain KUB to eval her stool burden/ any other abnormality. Currently not eating breakfast (which is on the table in front of her). Review of Systems Review of Systems: All systems reviewed & are unremarkable except as noted in Subjective Physical Exam Physical Exam: GENERAL APPEARANCE: WD/WN elderly F in NAD HEENT: NC, AT. MMM. EOMI, clear conjunctiva NECK: Supple. HEART: Normal rate and regular rhythm, normal S1/S1, no m/r/g LUNGS: CTAB, moving air well. No crackles or wheezes are heard. ABDOMEN: mildly distended abdomen, BS+, + some diffuse tenderness on palp. in LLQ EXTREMITIES: no LE edema, moves extremities NEUROLOGICAL: Awake and alert, able to answer some questions appropriately, speech fluent, no facial asymmetry Skin: Warm and dry without any rash. Results & Data Results & Data Vital Signs (Past 12 Hours) Vital Signs Temp Pulse Pulse Resp BP Pulse Ox O2 Del Method 01/05/25 08:11 36.8 C 65 17 122/75 95 Room Air 01/05/25 07:23 55 L 01/05/25 04:15 36.5 C 70 18 128/72 96 Room Air 01/05/25 00:00 36.5 C 77 18 135/83 98 Room Air Laboratory Results 01/05/25 01/05/25 01/04/25 Range/Units 08:00 06:05 21:10 WBC 4.28 L (4.8-10.8) K/ul RBC 3.10 L (4.20-5.40) M/uL Hgb 9.5 L (12.0-16.0) g/dl Hct 29.2 L (37.0-47.0) % MCV 94.2 (80.0-100.0) fL MCH 30.6 (25.0-34.0) pg MCHC 32.5 (32.0-36.0) g/dL RDW Std Deviation 46.6 H (36.4-46.3) fL RDW Coeff of Sukh 13.6 (11.5-14.5) % Plt Count 179 (130-400) K/uL MPV 9.9 (9.4-12.4) fL Sodium 138 (136-145) mmol/L Potassium 3.7 (3.5-5.1) mmol/L Chloride 104 (98-107) mmol/L Carbon Dioxide 26 (21-32) mmol/L Anion Gap 8 (3-11) BUN 12 (6-23) mg/dl Creatinine 0.70 (0.6-1.2) mg/dl Est Cr Clr Drug Dosing 69.8 ml/min eGFR 94.15 BUN/Creatinine Ratio 17.1 (10-20) Glucose 177 H (70-99(Fasting)) mg/dl POC Glucose 187 H 240 H (70-99) mg/dl Calcium 8.2 L (8.6-10.3) mg/dl Phosphorus 3.6 (2.5-4.9) mg/dl Magnesium 1.7 (1.7-2.4) mg/dl Total Bilirubin 0.3 (0.2-1.0) mg/dl AST 63 H (13-39) U/L ALT 52 (7-52) U/L Alkaline Phosphatase 56 (34-104) U/L Total Protein 5.7 L (6.0-8.3) gm/dl Albumin 2.7 L (3.4-5.0) gm/dl Globulin 3.0 (2.5-4.0) gm/dl Albumin/Globulin Ratio 0.9 (0.9-2) 01/04/25 01/04/25 Range/Units 16:22 12:02 WBC (4.8-10.8) K/ul RBC (4.20-5.40) M/uL Hgb (12.0-16.0) g/dl Hct (37.0-47.0) % MCV (80.0-100.0) fL MCH (25.0-34.0) pg MCHC (32.0-36.0) g/dL RDW Std Deviation (36.4-46.3) fL RDW Coeff of Sukh (11.5-14.5) % Plt Count (130-400) K/uL MPV (9.4-12.4) fL Sodium (136-145) mmol/L Potassium (3.5-5.1) mmol/L Chloride (98-107) mmol/L Carbon Dioxide (21-32) mmol/L Anion Gap (3-11) BUN (6-23) mg/dl Creatinine (0.6-1.2) mg/dl Est Cr Clr Drug Dosing ml/min eGFR BUN/Creatinine Ratio (10-20) Glucose (70-99(Fasting)) mg/dl POC Glucose 253 H 266 H (70-99) mg/dl Calcium (8.6-10.3) mg/dl Phosphorus (2.5-4.9) mg/dl Magnesium (1.7-2.4) mg/dl Total Bilirubin (0.2-1.0) mg/dl AST (13-39) U/L ALT (7-52) U/L Alkaline Phosphatase (34-104) U/L Total Protein (6.0-8.3) gm/dl Albumin (3.4-5.0) gm/dl Globulin (2.5-4.0) gm/dl Albumin/Globulin Ratio (0.9-2) Medications Administered Current Inpatient Medications Artificial Tears (Artificial Tears) 1 drops OP BID ESTELLE Stop: 02/01/25 20:59 Last Admin: 01/05/25 08:00 Dose: 1 drops Chlorhexidine Gluconate (Chlorhexidine Gluconate 0.12% 480 Ml) 15 ml MT BID ESTELLE Stop: 02/01/25 20:59 Last Admin: 01/05/25 08:00 Dose: 15 ml Cyanocobalamin (Cyanocobalamin (B-12) 500 Mcg Tablet) 500 mcg PO QAM ESTELLE Stop: 02/02/25 08:59 Last Admin: 01/05/25 08:00 Dose: 500 mcg Dextrose (Dextrose 50% 50 Ml Syringe) 25 - 50 ml IV UD PRN; Protocol PRN Reason: Hypoglycemia Protocol Stop: 02/01/25 18:52 Divalproex Sodium (Divalproex Sodium Sprinkle/Del-Rel 125 Mg Cap) 125 mg PO TID ESTELLE Stop: 02/01/25 20:59 Last Admin: 01/05/25 08:01 Dose: 125 mg Donepezil HCl (Donepezil Hcl 5 Mg Tab) 5 mg PO HS ESTELLE Stop: 02/01/25 20:59 Last Admin: 01/04/25 21:26 Dose: 5 mg Enoxaparin Sodium (Enoxaparin Inj 40 Mg/0.4 Ml Syr) 40 mg SQ Q24H ESTELLE Stop: 02/01/25 17:59 Last Admin: 01/04/25 17:51 Dose: 40 mg Glucagon (Glucagon For Inj 1 Mg Vial) 1 mg SQ UD PRN; Protocol PRN Reason: Hypoglycemia Protocol Stop: 02/01/25 18:52 Glucose (Glucose 40% Gel 15 Gm Tube) 15 - 30 gm PO UD PRN; Protocol PRN Reason: Hypoglycemia Protocol Stop: 02/01/25 18:52 Glucose (Glucose 10 Tab/Tube) 4 - 8 tab PO UD PRN; Protocol PRN Reason: Hypoglycemia Protocol Stop: 02/01/25 18:52 Piperacillin Sod/Tazobactam Sod (Zosyn) 4.5 gm in 100 mls @ 25 mls/hr IV Q8H ESTELLE; Protocol Stop: 01/05/25 13:59 Last Admin: 01/05/25 06:13 Dose: 25 mls/hr Insulin Aspart (Insulin Aspart Per Unit Charge) 0 units SC ACHS ESTELLE Stop: 02/01/25 20:59 Last Admin: 01/05/25 09:07 Dose: Not Given Levothyroxine Sodium (Levothyroxine Sodium 50 Mcg Tablet) 50 mcg PO DAILYBB ESTELLE Stop: 02/02/25 06:29 Last Admin: 01/05/25 06:13 Dose: 50 mcg Lidocaine (Lidocaine 5% 1 Patch) 1 patch TD DAILY ESTELLE Stop: 02/02/25 08:59 Last Admin: 01/05/25 08:01 Dose: 1 patch Magnesium Oxide (Magnesium Oxide 400 Mg Tab) 400 mg PO QAM ESTELLE Stop: 02/04/25 08:59 Last Admin: 01/05/25 09:39 Dose: 400 mg Memantine (Memantine Hcl 10 Mg Tab) 10 mg PO BID ESTELLE Stop: 02/01/25 20:59 Last Admin: 01/05/25 08:00 Dose: 10 mg Miscellaneous (Remove Lidoderm Patch) 1 each N/A DAILY@2100 [facility] Stop: 02/01/25 20:59 Last Admin: 01/04/25 21:27 Dose: 1 each Miscellaneous (Carbohydrates For Hypoglycemia ) 15 - 30 gm PO UD PRN PRN Reason: Hypoglycemia Protocol Stop: 02/01/25 18:52 Polyethylene Glycol (Polyethylene (Miralax) 17 Gm Pack) 17 gm PO DAILY ESTELLE Stop: 02/02/25 08:59 Last Admin: 01/05/25 08:01 Dose: 17 gm Senna/Docusate Sodium (Docusate Sodium/Senna 50/8.6mg Tab) 1 tab PO QAM ESTELLE Stop: 02/01/25 17:14 Last Admin: 01/05/25 08:01 Dose: 1 tab Sertraline HCl (Sertraline Hcl 100 Mg Tablet) 100 mg PO QAM ESTELLE Stop: 02/02/25 08:59 Last Admin: 01/05/25 08:00 Dose: 100 mg Vitamin D (Cholecalciferol 25 Mcg (1000 Units) Tab) 25 mcg PO DAILY ESTELLE Stop: 02/02/25 08:59 Last Admin: 01/05/25 08:00 Dose: 25 mcg
--- NOTE | 2025-01-05 14:14 | XRay Report ---
KUB HISTORY: follow up, assess stool burden COMPARISON STUDY: 01/02/2025 FINDINGS: There is mild retained stool, improved. No bowel obstruction seen. IMPRESSION: Mild retained stool, improved. ACT 112: Negative or not required by law. The above report was generated using voice recognition software. It may contain grammatical, syntax o r spelling errors. Electronically signed by: Pankaj Rojas M.D. 01/05/2025 2:13 PM
[2025-01-06 07:22] LABS: Hematocrit (blood only) 28.7 % (37.0-47.0); Hemoglobin 9.6 g/dl (12.0-16.0); Mean Corpuscular Hemoglobin 31.3 pg (25.0-34.0); Mean Corpuscular Volume 93.5 fL (80.0-100.0); Platelet Count 203 K/uL (130-400); RDW Standard Deviation 45.3 fL (36.4-46.3); Red Blood Count 3.07 M/uL (4.20-5.40); White Blood Count 4.94 K/ul (4.8-10.8)
[2025-01-06 07:36] LABS: Anion Gap 7.0 (3-11); Blood Urea Nitrogen 10.0 mg/dl (6-23); Calcium 8.0 mg/dl (8.6-10.3); Carbon Dioxide 27.0 mmol/L (21-32); Chloride 105.0 mmol/L (98-107); Creatinine Clr Calc Pharmacy 80.7 ml/min; Glucose 170.0 mg/dl (70-99(Fasting)); Magnesium 1.7 mg/dl (1.7-2.4); Potassium 3.8 mmol/L (3.5-5.1); Sodium 139.0 mmol/L (136-145)
[2025-01-06] MEDS: ACETAMINOPHEN 325 MG TAB PO PRN (15:47)
--- NOTE | 2025-01-06 16:24 | Hospitalist Progress Note ---
Date of Service January 06, 2025 Assessment & Plan (1) Acute hyponatremia: Plan This is a 69 yo woman with history of schizoaffective d/o, DMTII, dementia, HLD, dry eyes, overactive bladder, CKDII, constipation current SNF resident admitted for acute encephalopathy and questionable sepsis iso fever and tachycardia. There is no clear source of infection. Abx discontinued. High suspicion for dehydration and severe constipation contributing to acute presentation, however, suspect ongoing progressive process given report that patient has had ongoing decline. Continue aggressive bowel regimen at this time. Encourage po at this time as labs indicate mixed picture for hyponatremia, would suspect poor po intake over course of last few days, but also labs suggest mild SIADH likely. #Possible sepsis with fever/tachycardia, however, unclear source of infection #Severe constipation #Acute metabolic encephalopathy TMAX 38.3 but isabel fever for days, recent ammonia level 73 on 12/24 with reduction of depakote level on 12/26 (recent level 35L) S/P 2L NS given elevated bun/cr ratio, acute hyponatremia, tachycardia, fever and severe constipation could be dehydrated completed recent Bactrim course, UA noncontributory no clear source of infection or localizing symptoms, RSV/flu/covid negative, no WBC -follow infectious work up: Blood cx ngtd 72 hrs -Zosyn discontinued -Delirium precautions -received lactulose and had a BM on admission -continue Miralax daily and Senokot - ammonia level 26, B12 258, folate 10 01/03 Pt has abdominal discomfort this AM and reports she feels like she needs to have BM - RN at the bedside - will get bediside commode - cont. to closely monitor 01/04 Pt did not have a BM yesterday, still reports abdominal discomfort but can't specify anything else. Per RN pt had some PO intake then did not want anything. Will continue with bowel regimen and will cont. to closely monitor. 01/05 now having some loose stools/incontinence and also reports LLQ abd. discomfort. Will obtain KUB to assess stool burden/ any other abnormality 01/06 had large BM yesterday. remains confused beyond baseline per nursing #Acute hyponatremia NA 130, normal serum osmo at 280 (iso hyperglycemia, corrected to 132), urine osmos and urine sodium suggest possible slight SIADH, perhaps iso of illness/severe constipation improving - Current Na 139 Hypomagnesemia - Mag on admission 1.4 repleted monitor Hypothyroidism - TSH ~5 - cont. home levothyroxine #Mild elevation AST trending down to normal cont to hold statin possibly iso illness/dehydration #OAB hold fesoterodine iso confusion #DMTII hold home janumet current Hgb A1C 8.5% sliding scale while admitted #CKDII CTM #HLD continue statin #Schizoaffective d/o continue valproic acid continue quetiapine continue sertraline #Dementia continue namenda and aricept DVT ppx Lovenox Dispo med/tele Transfer back to [facility] when clinically stable A total of 54 minutes spent in care plan for this patient Admission and Anticipated Discharge Date Admission Date: January 02, 2025 Subjective Chart, data and VS reviewed. No fever. Pt seen at bedside with nursing. She cannot give a history. She says yes to all questions. She only states her first name. Pt seen in follow up of poss. sepsis, severe constipation. Pt from [facility]. Per [facility]- "going downhill for a while"" but no specifics. Review of Systems Review of Systems: Pt deemed a poor historian Physical Exam Physical Exam: General- adult female seen sitting up in bed. Did eat some breakfast. Chronic ill appearnace. Head- atraumatic Eyes- PERRL, EOMI, anicteric ENT- oropharynx clear Neck- supple, no JVD, no adenopathy, no thyromegaly; Lungs- clear to auscultation and percussion Heart- regular rhythm; no murmur, no gallop, no rub appreciated Abdomen- normal bowel sounds, soft, nontender, no masses or hepatosplenomegaly Extremities- no pretibial edema, Neuro- alert, oriented to first name only; PERRL, EOMI; no facial palsy; no dysarthria; Skin- warm & dry Results & Data Results & Data Vital Signs (Past 12 Hours) Vital Signs Temp Pulse Pulse Resp BP Pulse Ox O2 Del Method 01/06/25 15:27 82 01/06/25 15:04 36.6 C 76 16 111/66 95 Room Air 01/06/25 11:12 37.2 C 79 18 105/57 L 90 Room Air 01/06/25 07:18 69 01/06/25 07:04 36.5 C 65 18 152/90 H 95 Room Air Diagnostic Findings Laboratory Results WBC 4.94 K/ul (4.8-10.8) 01/06/25 06:32 RBC 3.07 M/uL (4.20-5.40) L 01/06/25 06:32 Hgb 9.6 g/dl (12.0-16.0) L 01/06/25 06:32 Hct 28.7 % (37.0-47.0) L 01/06/25 06:32 MCV 93.5 fL (80.0-100.0) 01/06/25 06:32 MCH 31.3 pg (25.0-34.0) 01/06/25 06:32 MCHC 33.4 g/dL (32.0-36.0) 01/06/25 06:32 RDW Std Deviation 45.3 fL (36.4-46.3) 01/06/25 06:32 RDW Coeff of Sukh 13.3 % (11.5-14.5) 01/06/25 06:32 Plt Count 203 K/uL (130-400) 01/06/25 06:32 MPV 10.0 fL (9.4-12.4) 01/06/25 06:32 Immature Gran % (Auto) 2.2 % 01/02/25 14:20 Neut % (Auto) 88.6 % 01/02/25 14:20 Lymph % (Auto) 6.4 % 01/02/25 14:20 [place] % (Auto) 1.6 % 01/02/25 14:20 Eos % (Auto) 0.9 % 01/02/25 14:20 Baso % (Auto) 0.3 % 01/02/25 14:20 Neut # (Auto) 5.12 K/uL (1.40-6.50) 01/02/25 14:20 Lymph # (Auto) 0.37 K/uL (1.20-3.40) L 01/02/25 14:20 [place] # (Auto) 0.09 K/uL (0.11-0.59) L 01/02/25 14:20 Eos # (Auto) 0.05 K/uL (0.00-0.50) 01/02/25 14:20 Baso # (Auto) 0.02 K/uL (0.00-0.20) 01/02/25 14:20 Immature Gran # (Auto) 0.13 K/uL (0.01-0.20) 01/02/25 14:20 PT 12.2 Seconds (9.0-12.0) H 01/02/25 14:20 INR 1.1 (0.9-1.1) 01/02/25 14:20 APTT 35 Seconds (21-31) H 01/02/25 14:20 PTT Ratio 1.3 01/02/25 14:20 VBG pH 7.49 (7.36-7.41) H 01/02/25 14:43 VBG pCO2 32 mmHg (38-50) L 01/02/25 14:43 VBG pO2 69 mmHg 01/02/25 14:43 VBG HCO3 24 mmol/L 01/02/25 14:43 VBG O2 Saturation 95.9 % 01/02/25 14:43 VBG Base Excess 1.7 mEq/L 01/02/25 14:43 Sodium 139 mmol/L (136-145) 01/06/25 06:32 Potassium 3.8 mmol/L (3.5-5.1) 01/06/25 06:32 Chloride 105 mmol/L (98-107) 01/06/25 06:32 Carbon Dioxide 27 mmol/L (21-32) 01/06/25 06:32 Anion Gap 7 (3-11) 01/06/25 06:32 BUN 10 mg/dl (6-23) 01/06/25 06:32 Creatinine 0.61 mg/dl (0.6-1.2) 01/06/25 06:32 Est Cr Clr Drug Dosing 80.7 ml/min 01/06/25 06:32 eGFR 97.32 01/06/25 06:32 BUN/Creatinine Ratio 16.4 (10-20) 01/06/25 06:32 Glucose 170 mg/dl (70-99(Fasting)) H 01/06/25 06:32 POC Glucose 249 mg/dl (70-99) H 01/06/25 12:02 Estimat Average Glucose 197 mg/dl 01/02/25 14:20 Hemoglobin A1c 8.5 % (4.5-5.6) H 01/02/25 14:20 Osmolality 280 mOsm/kg (280-300) 01/02/25 14:20 Lactate 1.4 mmol/L (0.4-2.0) 01/02/25 14:20 Calcium 8.0 mg/dl (8.6-10.3) L 01/06/25 06:32 Phosphorus 2.7 mg/dl (2.5-4.9) 01/06/25 06:32 Magnesium 1.7 mg/dl (1.7-2.4) 01/06/25 06:32 Total Bilirubin 0.3 mg/dl (0.2-1.0) 01/05/25 06:05 Direct Bilirubin 0.1 mg/dl (0-0.2) 01/02/25 14:20 AST 63 U/L (13-39) H 01/05/25 06:05 ALT 52 U/L (7-52) 01/05/25 06:05 Alkaline Phosphatase 56 U/L (34-104) 01/05/25 06:05 Ammonia 26.0 umol/L (18-72) 01/02/25 16:59 Troponin I High Sens 12.4 pg/ml (0-14) 01/02/25 14:20 Total Protein 5.7 gm/dl (6.0-8.3) L 01/05/25 06:05 Albumin 2.7 gm/dl (3.4-5.0) L 01/05/25 06:05 Globulin 3.0 gm/dl (2.5-4.0) 01/05/25 06:05 Albumin/Globulin Ratio 0.9 (0.9-2) 01/05/25 06:05 Lipase 34 U/L (11-82) 01/02/25 17:01 Vitamin B12 258 pg/ml (180-914) 01/02/25 14:20 Folate 10.86 ng/ml (>5.38) 01/02/25 14:20 Procalcitonin 0.67 ng/ml (0-0.5) H 01/02/25 14:20 TSH 5.702 uIu/ml (0.300-4.500) H 01/02/25 14:20 Free T4 0.80 ng/dl (0.61-1.60) 01/02/25 14:20 Urine Color Yellow 01/02/25 15:13 Urine Appearance Clear (Clear) 01/02/25 15:13 Urine pH 6.0 (4.5-7.5) 01/02/25 15:13 Ur Specific [place] 1.021 (1.000-1.030) 01/02/25 15:13 Urine Protein 2+ (Negative) H 01/02/25 15:13 Urine Glucose (UA) 1+ (Negative) H 01/02/25 15:13 Urine Ketones Trace (Negative) H 01/02/25 15:13 Urine Blood Negative (Negative) 01/02/25 15:13 Urine Nitrite Negative (Negative) 01/02/25 15:13 Urine Bilirubin Negative (Negative) 01/02/25 15:13 Urine Urobilinogen Negative (Negative) 01/02/25 15:13 Ur Leukocyte Esterase Negative (Negative) 01/02/25 15:13 Urine WBC (Auto) 0-5 /hpf (0-5) 01/02/25 15:13 Urine RBC (Auto) 0-2 /hpf (0-2) 01/02/25 15:13 U Hyaline Cast (Auto) 0-2 /lpf (0-2) 01/02/25 15:13 U Epithel Cells (Auto) 3-5 /hpf (0-2) H 01/02/25 15:13 Urine Bacteria (Auto) None Seen (None Seen) 01/02/25 15:13 Urine Osmolality 583 mOsm/kg (500-800) 01/02/25 15:13 Ur Random Sodium 41 mmol/L 01/02/25 15:13 Urine Comment 01/02/25 15:13 Nasal Screen MRSA (PCR) Negative (Negative) 01/02/25 19:40 SARS-CoV-2 (PCR) NEGATIVE (Negative) 01/02/25 14:26 Influenza Type A (PCR) Negative (Neg) 01/02/25 14:26 Influenza Type B (PCR) Negative (Neg) 01/02/25 14:26 RSV (RT-PCR) Negative (Neg) 01/02/25 14:26 Impressions Chest X-Ray 01/02/25 14:23 Chest radiograph, one view History: Sepsis Comparison: None Findings: Single AP view of the chest performed. No focal consolidation or pleural effusion. No pneumothorax. The cardiomediastinal silhouette is within normal limits. Normal pulmonary vascularity. No evidence for lymphadenopathy. No visualized bony or soft tissue abnormality. Impression: Normal chest radiograph Electronically signed by Jeremy Castro 01-02-2025 3:[address] 01/02/25 14:23 CT head without contrast History: AMS Comparison: None Technique: Using multidetector thin collimation helical acquisition technique, axial, coronal and sagittal CT images from the skull base to the vertex were obtained without intravenous contrast. Dose reduction techniques were achieved by using automatic exposure control and/or adjustment of mA and/or kV according to patient size and/or use of iterative reconstruction technique. Findings: No intracranial hemorrhage, mass-effect, or midline shift. The ventricles are proportionate to the cerebral sulci. The niño to white matter differentiation of the cerebral hemispheres is preserved. The basal cisterns are patent. There is moderate cerebral atrophy. Moderate, patchy low-attenuation changes in the white matter, most suggestive of sequelae of chronic small vessel ischemic disease. The visualized paranasal sinuses are clear. Mastoid air cells are clear. Impression: No acute intracranial pathology. Electronically signed by Jeremy Castro 01-02-2025 3:59 PM Abdomen/Pelvis CT 01/02/25 14:34 EXAMINATION: CT of the abdomen and pelvis performed without contrast TECHNIQUE: Helical CT images from the lung bases through the symphysis pubis were obtained without contrast. Coronal and sagittal reformatted images were generated at a workstation for further assessment. Dose reduction techniques were achieved by using automatic exposure control and/or adjustment of mA and/or kV according to patient size and/or use of iterative reconstruction technique. COMPARISON: None HISTORY: Abdominal pain FINDINGS: Lower chest: No consolidation. No pleural effusion or pneumothorax. Liver: No suspicious liver lesions. Gallbladder: No gallstones. No evidence of acute cholecystitis. Spleen: Normal size. Pancreas: No suspicious pancreatic lesions. The pancreatic duct is not dilated. Adrenal glands: No adrenal nodules. Kidneys: No hydronephrosis or obstructing renal stones. Bladder / Pelvic organs: Unremarkable. Bowel: No bowel obstruction. No abnormal bowel wall thickening. The appendix is unremarkable. There is a large colonic stool burden mixed with fat density throughout the large bowel, and especially in the rectum. Lymph nodes: No retroperitoneal, mesenteric, or pelvic lymphadenopathy. Peritoneum / Retroperitoneum: No free fluid or air within the abdomen. Vessels: No infrarenal aortic aneurysm. Bones and soft tissues: No suspicious lesion in the bones. IMPRESSION: There is a large colonic stool burden mixed with fat density suggesting steatorrhea. No other acute process Electronically signed by Jeremy Castro 01-02-2025 4:01 PM KUB X-Ray 01/05/25 10:11 KUB HISTORY: follow up, assess stool burden COMPARISON STUDY: 01/02/2025 FINDINGS: There is mild retained stool, improved. No bowel obstruction seen. IMPRESSION: Mild retained stool, improved. ACT 112: Negative or not required by law. The above report was generated using voice recognition software. It may contain grammatical, syntax or spelling errors. Electronically signed by: Pankaj Rojas M.D. 01/05/2025 2:13 PM
[2025-01-06 23:38] VITALS: RESP 18
[2025-01-07 07:08] VITALS: TEMP 98.4; O2SAT 96
[2025-01-07 08:36] LABS: Hematocrit (blood only) 29.8 % (37.0-47.0); Hemoglobin 9.6 g/dl (12.0-16.0); Mean Corpuscular Hemoglobin 30.9 pg (25.0-34.0); Mean Corpuscular Volume 95.8 fL (80.0-100.0); Platelet Count 235 K/uL (130-400); RDW Standard Deviation 47.2 fL (36.4-46.3); Red Blood Count 3.11 M/uL (4.20-5.40); White Blood Count 5.62 K/ul (4.8-10.8)
[2025-01-07 09:02] LABS: Anion Gap 7.0 (3-11); Blood Urea Nitrogen 15.0 mg/dl (6-23); Calcium 8.2 mg/dl (8.6-10.3); Carbon Dioxide 27.0 mmol/L (21-32); Chloride 105.0 mmol/L (98-107); Creatinine Clr Calc Pharmacy 87.6 ml/min; Glucose 176.0 mg/dl (70-99(Fasting)); Magnesium 1.9 mg/dl (1.7-2.4); Potassium 3.8 mmol/L (3.5-5.1); Sodium 139.0 mmol/L (136-145)
[2025-01-07 11:19] VITALS: BP 114/75; PULSE 66
--- NOTE | 2025-01-07 11:23 | Discharge Summary ---
Discharge Summary Date of Service January 07, 2025 Principal Dx & Hospital Course #1 = Principal Diagnosis (1) Acute hyponatremia: Plan Hospital course: This is a 69 yo woman with history of schizoaffective d/o, DMTII, dementia, HLD, dry eyes, overactive bladder, CKDII, constipation current SNF resident admitted for acute encephalopathy and questionable sepsis iso fever and tachycardia. There is no clear source of infection. Abx discontinued. High suspicion for dehydration and severe constipation contributing to acute presentation, however, suspect ongoing progressive process given report that patient has had ongoing decline. Continue aggressive bowel regimen at this time. Encourage po at this time as labs indicate mixed picture for hyponatremia, would suspect poor po intake over course of last few days, but also labs suggest mild SIADH likely. #Sepsis ruled out fever/tachycardia, however, unclear source of infection #Severe constipation #Acute metabolic encephalopathy TMAX 38.3 but no fever for days, recent ammonia level 73 on 12/24 with reduction of depakote level on 12/26 (recent level 35L) S/P 2L NS given elevated bun/cr ratio, acute hyponatremia, tachycardia, fever and severe constipation could be dehydrated completed recent Bactrim course, UA noncontributory no clear source of infection or localizing symptoms, RSV/flu/covid negative, no WBC -follow infectious work up: Blood cx ngtd 72 hrs -Zosyn discontinued -Delirium precautions -received lactulose and had a BM on admission -continue Miralax daily and Senokot - ammonia level 26, B12 258, folate 10 01/03 Pt has abdominal discomfort this AM and reports she feels like she needs to have BM - RN at the bedside - will get bedside commode - cont. to closely monitor 01/04 Pt did not have a BM yesterday, still reports abdominal discomfort but can't specify anything else. Per RN pt had some PO intake then did not want anything. Will continue with bowel regimen and will cont. to closely monitor. 01/05 now having some loose stools/incontinence and also reports LLQ abd. discomfort. Will obtain KUB to assess stool burden/ any other abnormality 01/06 had large BM yesterday. remains confused beyond baseline per nursing #Acute hyponatremia NA 130, normal serum osmo at 280 (iso hyperglycemia, corrected to 132), urine osmos and urine sodium suggest possible slight SIADH, perhaps iso of illness/severe constipation improving - Current Na 139 Hypomagnesemia - Mag on admission 1.4 repleted monitor Hypothyroidism - TSH ~5 - cont. home levothyroxine #Mild elevation AST trending down to normal cont to hold statin possibly iso illness/dehydration #OAB hold fesoterodine iso confusion #DMTII hold home janumet current Hgb A1C 8.5% sliding scale while admitted #CKDII CTM #HLD continue statin #Schizoaffective d/o continue valproic acid continue quetiapine continue sertraline #Dementia continue namenda and aricept Pt deemed stable for discharge back to SNF. She is tolerating po and having BMs BPs are borderline high. Continue to monitor Transfer back to [facility] on this date. [facility] prognosis is poor. Notes For Next Care Provider Laboratory Results WBC 5.62 K/ul (4.8-10.8) 01/07/25 06:42 RBC 3.11 M/uL (4.20-5.40) L 01/07/25 06:42 Hgb 9.6 g/dl (12.0-16.0) L 01/07/25 06:42 Hct 29.8 % (37.0-47.0) L 01/07/25 06:42 MCV 95.8 fL (80.0-100.0) 01/07/25 06:42 MCH 30.9 pg (25.0-34.0) 01/07/25 06:42 MCHC 32.2 g/dL (32.0-36.0) 01/07/25 06:42 RDW Std Deviation 47.2 fL (36.4-46.3) H 01/07/25 06:42 RDW Coeff of Sukh 13.6 % (11.5-14.5) 01/07/25 06:42 Plt Count 235 K/uL (130-400) 01/07/25 06:42 MPV 9.9 fL (9.4-12.4) 01/07/25 06:42 Immature Gran % (Auto) 2.2 % 01/02/25 14:20 Neut % (Auto) 88.6 % 01/02/25 14:20 Lymph % (Auto) 6.4 % 01/02/25 14:20 [place] % (Auto) 1.6 % 01/02/25 14:20 Eos % (Auto) 0.9 % 01/02/25 14:20 Baso % (Auto) 0.3 % 01/02/25 14:20 Neut # (Auto) 5.12 K/uL (1.40-6.50) 01/02/25 14:20 Lymph # (Auto) 0.37 K/uL (1.20-3.40) L 01/02/25 14:20 Sutton # (Auto) 0.09 K/uL (0.11-0.59) L 01/02/25 14:20 Eos # (Auto) 0.05 K/uL (0.00-0.50) 01/02/25 14:20 Baso # (Auto) 0.02 K/uL (0.00-0.20) 01/02/25 14:20 Immature Gran # (Auto) 0.13 K/uL (0.01-0.20) 01/02/25 14:20 PT 12.2 Seconds (9.0-12.0) H 01/02/25 14:20 INR 1.1 (0.9-1.1) 01/02/25 14:20 APTT 35 Seconds (21-31) H 01/02/25 14:20 PTT Ratio 1.3 01/02/25 14:20 VBG pH 7.49 (7.36-7.41) H 01/02/25 14:43 VBG pCO2 32 mmHg (38-50) L 01/02/25 14:43 VBG pO2 69 mmHg 01/02/25 14:43 VBG HCO3 24 mmol/L 01/02/25 14:43 VBG O2 Saturation 95.9 % 01/02/25 14:43 VBG Base Excess 1.7 mEq/L 01/02/25 14:43 Sodium 139 mmol/L (136-145) 01/07/25 06:42 Potassium 3.8 mmol/L (3.5-5.1) 01/07/25 06:42 Chloride 105 mmol/L (98-107) 01/07/25 06:42 Carbon Dioxide 27 mmol/L (21-32) 01/07/25 06:42 Anion Gap 7 (3-11) 01/07/25 06:42 BUN 15 mg/dl (6-23) 01/07/25 06:42 Creatinine 0.56 mg/dl (0.6-1.2) L 01/07/25 06:42 Est Cr Clr Drug Dosing 87.6 ml/min 01/07/25 06:42 eGFR 99.35 01/07/25 06:42 BUN/Creatinine Ratio 26.8 (10-20) H 01/07/25 06:42 Glucose 176 mg/dl (70-99(Fasting)) H 01/07/25 06:42 POC Glucose 162 mg/dl (70-99) H 01/07/25 07:54 Estimat Average Glucose 197 mg/dl 01/02/25 14:20 Hemoglobin A1c 8.5 % (4.5-5.6) H 01/02/25 14:20 Osmolality 280 mOsm/kg (280-300) 01/02/25 14:20 Lactate 1.4 mmol/L (0.4-2.0) 01/02/25 14:20 Calcium 8.2 mg/dl (8.6-10.3) L 01/07/25 06:42 Phosphorus 2.7 mg/dl (2.5-4.9) 01/06/25 06:32 Magnesium 1.9 mg/dl (1.7-2.4) 01/07/25 06:42 Total Bilirubin 0.3 mg/dl (0.2-1.0) 01/05/25 06:05 Direct Bilirubin 0.1 mg/dl (0-0.2) 01/02/25 14:20 AST 63 U/L (13-39) H 01/05/25 06:05 ALT 52 U/L (7-52) 01/05/25 06:05 Alkaline Phosphatase 56 U/L (34-104) 01/05/25 06:05 Ammonia 26.0 umol/L (18-72) 01/02/25 16:59 Troponin I High Sens 12.4 pg/ml (0-14) 01/02/25 14:20 Total Protein 5.7 gm/dl (6.0-8.3) L 01/05/25 06:05 Albumin 2.7 gm/dl (3.4-5.0) L 01/05/25 06:05 Globulin 3.0 gm/dl (2.5-4.0) 01/05/25 06:05 Albumin/Globulin Ratio 0.9 (0.9-2) 01/05/25 06:05 Lipase 34 U/L (11-82) 01/02/25 17:01 Vitamin B12 258 pg/ml (180-914) 01/02/25 14:20 Folate 10.86 ng/ml (>5.38) 01/02/25 14:20 Procalcitonin 0.67 ng/ml (0-0.5) H 01/02/25 14:20 TSH 5.702 uIu/ml (0.300-4.500) H 01/02/25 14:20 Free T4 0.80 ng/dl (0.61-1.60) 01/02/25 14:20 Urine Color Yellow 01/02/25 15:13 Urine Appearance Clear (Clear) 01/02/25 15:13 Urine pH 6.0 (4.5-7.5) 01/02/25 15:13 Ur Specific [place] 1.021 (1.000-1.030) 01/02/25 15:13 Urine Protein 2+ (Negative) H 01/02/25 15:13 Urine Glucose (UA) 1+ (Negative) H 01/02/25 15:13 Urine Ketones Trace (Negative) H 01/02/25 15:13 Urine Blood Negative (Negative) 01/02/25 15:13 Urine Nitrite Negative (Negative) 01/02/25 15:13 Urine Bilirubin Negative (Negative) 01/02/25 15:13 Urine Urobilinogen Negative (Negative) 01/02/25 15:13 Ur Leukocyte Esterase Negative (Negative) 01/02/25 15:13 Urine WBC (Auto) 0-5 /hpf (0-5) 01/02/25 15:13 Urine RBC (Auto) 0-2 /hpf (0-2) 01/02/25 15:13 U Hyaline Cast (Auto) 0-2 /lpf (0-2) 01/02/25 15:13 U Epithel Cells (Auto) 3-5 /hpf (0-2) H 01/02/25 15:13 Urine Bacteria (Auto) None Seen (None Seen) 01/02/25 15:13 Urine Osmolality 583 mOsm/kg (500-800) 01/02/25 15:13 Ur Random Sodium 41 mmol/L 01/02/25 15:13 Urine Comment 01/02/25 15:13 Nasal Screen MRSA (PCR) Negative (Negative) 01/02/25 19:40 SARS-CoV-2 (PCR) NEGATIVE (Negative) 01/02/25 14:26 Influenza Type A (PCR) Negative (Neg) 01/02/25 14:26 Influenza Type B (PCR) Negative (Neg) 01/02/25 14:26 RSV (RT-PCR) Negative (Neg) 01/02/25 14:26 Impressions Chest X-Ray 01/02/25 14:23 Chest radiograph, one view History: Sepsis Comparison: None Findings: Single AP view of the chest performed. No focal consolidation or pleural effusion. No pneumothorax. The cardiomediastinal silhouette is within normal limits. Normal pulmonary vascularity. No evidence for lymphadenopathy. No visualized bony or soft tissue abnormality. Impression: Normal chest radiograph Electronically signed by Jeremy Castro 01-02-2025 3:[address] 01/02/25 14:23 CT head without contrast History: AMS Comparison: None Technique: Using multidetector thin collimation helical acquisition technique, axial, coronal and sagittal CT images from the skull base to the vertex were obtained without intravenous contrast. Dose reduction techniques were achieved by using automatic exposure control and/or adjustment of mA and/or kV according to patient size and/or use of iterative reconstruction technique. Findings: No intracranial hemorrhage, mass-effect, or midline shift. The ventricles are proportionate to the cerebral sulci. The niño to white matter differentiation of the cerebral hemispheres is preserved. The basal cisterns are patent. There is moderate cerebral atrophy. Moderate, patchy low-attenuation changes in the white matter, most suggestive of sequelae of chronic small vessel ischemic disease. The visualized paranasal sinuses are clear. Mastoid air cells are clear. Impression: No acute intracranial pathology. Electronically signed by Jeremy Castro 01-02-2025 3:59 PM Abdomen/Pelvis CT 01/02/25 14:34 EXAMINATION: CT of the abdomen and pelvis performed without contrast TECHNIQUE: Helical CT images from the lung bases through the symphysis pubis were obtained without contrast. Coronal and sagittal reformatted images were generated at a workstation for further assessment. Dose reduction techniques were achieved by using automatic exposure control and/or adjustment of mA and/or kV according to patient size and/or use of iterative reconstruction technique. COMPARISON: None HISTORY: Abdominal pain FINDINGS: Lower chest: No consolidation. No pleural effusion or pneumothorax. Liver: No suspicious liver lesions. Gallbladder: No gallstones. No evidence of acute cholecystitis. Spleen: Normal size. Pancreas: No suspicious pancreatic lesions. The pancreatic duct is not dilated. Adrenal glands: No adrenal nodules. Kidneys: No hydronephrosis or obstructing renal stones. Bladder / Pelvic organs: Unremarkable. Bowel: No bowel obstruction. No abnormal bowel wall thickening. The appendix is unremarkable. There is a large colonic stool burden mixed with fat density throughout the large bowel, and especially in the rectum. Lymph nodes: No retroperitoneal, mesenteric, or pelvic lymphadenopathy. Peritoneum / Retroperitoneum: No free fluid or air within the abdomen. Vessels: No infrarenal aortic aneurysm. Bones and soft tissues: No suspicious lesion in the bones. IMPRESSION: There is a large colonic stool burden mixed with fat density suggesting steatorrhea. No other acute process Electronically signed by Jeremy Castro 01-02-2025 4:01 PM KUB X-Ray 01/05/25 10:11 KUB HISTORY: follow up, assess stool burden COMPARISON STUDY: 01/02/2025 FINDINGS: There is mild retained stool, improved. No bowel obstruction seen. IMPRESSION: Mild retained stool, improved. ACT 112: Negative or not required by law. The above report was generated using voice recognition software. It may contain grammatical, syntax or spelling errors. Electronically signed by: Pankaj Rojas M.D. 01/05/2025 2:13 PM Medication Changes From Visit . Admission HPI Per Admitting Provider Ms. Li is a 69 yo woman with history of schizoaffective d/o, DMTII, dementia, HLD, dry eyes, overactive bladder, CKDII, constipation presented to [facility] ED due to confusion. Patient can state name, but is poor historian--ultimately stating "yes" to every question and closing eyes when question requires more thoughtful response. Patient does not recall last bowel movement. Patient reports everything hurts on her. She follows simple commands and is awake and alert. Patient does endorse her abdomen feels full. She denies chest pain. She denies any nausea or vomiting. Patient unable to answer further questions. Call to [facility] [phone] was made for more history. Per nursing (Dari), she has been on the case load for 2 years; however, it is reported that she has "gone down hill" over the last two months, noting progressive weakness from being entirely independent, requiring assistance with eating, and near full support. She was noted to just "look worse" prompting her to be sent to the ED. Available nurse was unable to explain what was "worse" from baseline. In the ED, vitals were notable for BP of 130-140s HR of 80-110s, and O2 sat of low 90s on room air Imaging revealed large colonic stool burden, CT head with chronic ischemic small vessel disease, chest xray without consolidation EKG reviewed with QTc 428 and tachycardia (no resolved) ED interventions: zosyn, tylenol, 2LNS labs with stable chronic anemia, hyponatremia to 130, AST 51, TSH 5.702, FT4 pending at this time, procal 0.67 Patient to be admitted to [facility] for further evaluation and management of acute encephalopathy Discharge Exam General- adult elderly female seen at bedside with chronic ill appearance Head- atraumatic Eyes- PERRL, EOMI, anicteric ENT- oropharynx clear Neck- supple, no JVD, no adenopathy, Lungs- clear to auscultation and percussion Heart- regular rhythm; no murmur, no gallop, no rub appreciated Abdomen- normal bowel sounds, soft, nontender, no masses or hepatosplenomegaly Extremities- no pretibial edema, no calf tenderness; peripheral pulses intact, small blister on left heel, no signs of purulent drainage or infection Neuro- alert, she gives her name but not oriented to person or place; PERRL, EOMI; no facial palsy; no dysarthria; moves all extremities Skin- warm & dry Updated Medication List Medication Instructions Recorded Confirmed Type atorvastatin 20 mg tablet (Lipitor) 20 mg PO HS 07/28/20 01/02/25 History donepezil 5 mg tablet (Aricept) 5 mg PO HS 07/28/20 01/02/25 History fesoterodine 4 mg tablet,extended 4 mg PO DAILY 07/28/20 01/02/25 History release 24 hr (Toviaz) levothyroxine 50 mcg tablet 50 mcg PO QAM 07/28/20 01/02/25 History (Synthroid) polyethylene glycol 3350 17 gram 17 g PO DAILY 07/28/20 01/02/25 History oral powder packet (Miralax) sitagliptin phosphate 50 1 tab PO BID 07/28/20 01/02/25 History mg-metformin 1,000 mg tablet (Janumet) acetaminophen 325 mg tablet 650 mg PO Q6 PRN Fever Or Pain 01/02/25 01/02/25 History carboxymethylcellulose sodium 0.5 1 drp OPB BID 01/02/25 01/02/25 History % eye drops (Refresh Tears) chlorhexidine gluconate 0.12 % 15 ml buccal BID 01/02/25 01/02/25 History mouthwash (Peridex) cholecalciferol (vitamin D3) 25 25 mcg PO DAILY 01/02/25 01/02/25 History mcg (1,000 unit) tablet (Vitamin D3) divalproex 125 mg capsule,delayed 125 mg PO TID 01/02/25 01/02/25 History release sprinkle lidocaine 5 % topical patch 1 patch topical DAILY 01/02/25 01/02/25 History memantine 10 mg tablet 10 mg PO BID 01/02/25 01/02/25 History quetiapine 100 mg tablet 150 mg PO HS 01/02/25 01/02/25 History sertraline 100 mg tablet 100 mg PO QAM 01/02/25 01/02/25 History Hospital Stay Data Consultations 01/02/25 16:16 ED Decision to Admit Stat Diagnostic Imagining Performed 01/02/25 14:23 CT head/brain wo con Stat 01/02/25 14:34 CT abd pelvis wo con Stat Pending Results Patient Have Any Pending Studies at Discharge: No Discharge Instructions Given to Patient (Per Discharging Provider) Check labsBMP, CBC and magnesium in 1 week Limited codeDO NOT INTUBATE Continue bowel regimen Follow BPs Routine wound care for the left heel blister Total Time Total Time Spent Total Time Spent (In Minutes): Total time spent in discharge planning for this patient was 60 minutes
== END 2025-01-07 14:15 | DRG 643 ==
LOC: ED 14:12 → SUATTDRO 16:54 → 2N 16:54